=== PATIENT | female | born 1945 | race Caucasian/White ===

== ENCOUNTER 2025-06-30 16:24 | Inpatient (IN) | payer MEDICARE, OTHER ==
[~2025-06-30] VITALS: Ht 157.5 cm; Wt 70.3 kg
[2025-06-30 17:28] LABS: IMMATURE GRANULOCYTE ABSOLUTE 0.08 K/uL (0-1); NUCLEATED RED BLOOD CELLS 0.0 % (0.0-0.19); PLATELET COUNT (AUTO) 369 K/uL (130-400); RED BLOOD CELL COUNT(AUTO) 4.74 MIL/uL (4.00-5.50); RED CELL DISTRIBUTION WIDTH 11.9 % (11.0-15.5); WHITE BLOOD COUNT (AUTO) 12.8 K/uL (4.8-10.8)
[2025-06-30 17:49] LABS: CREATINE KINASE, TOTAL 66.0 U/L (21-232); CREATININE 1.0 mg/dL (0.5-1.0); GLOMERULAR FILTR. RATE CALC 58.0 mL/min (>90); GLUCOSE,RANDOM 104.0 mg/dL (70-105); SODIUM SERUM 141.0 mmol/L (136-145); UREA NITROGEN, BLOOD 14.0 mg/dL (7-18)
[2025-06-30] MEDS: 0.9%NACL 1000ML 1,000 ML IV ONE (18:07)
[2025-06-30] MEDS: MAGNESIUM OXIDE 400 MG TABLET PO ONE (18:07)
[2025-06-30] MEDS ORDERED: AMLO-258 PO (18:20)
[2025-06-30] MEDS ORDERED: SERT-439 PO (18:20)
[2025-06-30] MEDS ORDERED: SIMV-43 PO (18:20)
[2025-06-30] MEDS ORDERED: LEVO112C5 PO (18:20)
[2025-06-30] MEDS ORDERED: LOSA25TA41 PO (18:20)
--- NOTE | 2025-06-30 18:24 | NUR ---
MEDICATIONS UPDATEDM PENDING RECONCILED FROM PROVIDER
--- NOTE | 2025-06-30 18:44 | EKG ---
[facility] Test Date: 2025-06-30 Test Time: 17:23:33 Pat Name: BRIANNA STOLL Department: ED Room: 302 Gender: F Ios Developer: [id number] : 1945 Requested By: ANGIE JOLLY Order Number: [id number] Reading MD: Tatum Trimble Measurements Intervals [place] Rate: 73 P: 70 CA: 163 QRS: -21 QRSD: 95 T: 33 QT: 395 QTc: 436 Interpretive Statements Sinus rhythm No previous ECG available for comparison Electronically Signed On 07-01-2025 08:33:37 CDT by Tatum Trimble Please click the below link to view image of tracing.
[2025-06-30 19:32] LABS: APPEARANCE,URINE CLEAR (CLEAR); GLUCOSE, URINE (UA) NEGATIVE (NEGATIVE); LEUKOCYTE ESTERASE ,URINE 25 Leu/uL (NEGATIVE); NITRATE,URINE NEGATIVE (NEGATIVE); OCCULT BLOOD,URINE NEGATIVE (NEGATIVE)
[2025-06-30 19:34] LABS: ADD UA MICROSCOPIC YES
--- NOTE | 2025-06-30 20:17 | HP ---
History of Present Illness Reason for Visit: dizziness History of Present Illness Ms. Hanson is a 79-year-old female that was seen and examined today on 06/30/2025. Patient is a good historian of personal health Patient reports that she came to the emergency department with a chief complaint of lightheadedness. Onset was today at 3:00 p.m.. Location is head. Duration is on and off. Patient reports one episode. Character is described as, "like everything drained out of my body. "Symptoms are aggravated with a standing up from using the toilet. There was no alleviating factors. Symptoms resolved on their own. Patient denies any associated nausea, vomiting, chest pain. Today in the emergency department WBCs 12.8, potassium 3.0, urinalysis positive for leukocyte esterase and WBCs 6-10. Emergency room physician recommended that patient be admitted with a diagnosis of syncope. Past Medical History ADDITIONAL PAST MEDICAL HISTORY: [Hypertension, hypothyroidism, hyperlipidemia] SOCIAL HISTORY: [Negative for smoking, alcohol use, drug use. Patient lives with the , Suman. Patient denies difficulty paying her bills. Patient is typically independent of all her ADLs.] SURGICAL HISTORY: [Pituitary tumor excision, cholecystectomy, BTL] Review of Systems General: No Fever, No Chills, No Night Sweats, No Fatigue, No Malaise, No Appetite, No Other HEENT: No Head Aches, No Visual Changes, No Eye Pain, No Ear Pain, No Dysphasia, No Sinus Congestion, No Post Nasal Drip, No Sore Throat, No Other Pulmonary: No Dyspnea, No Cough, No Pleuritic Chest Pain, No Other Cardiovascular: Lt Headedness; No: Chest Pain, Palpitations, Orthopnea, Paroxysmal Noc. Dyspnea, Edema, Other Gastrointestinal: No: Nausea, Vomiting, Abdominal Pain, Diarrhea, Constipation, Melena, Hematochezia, Other Genitourinary: No Dysuria, No Frequency, No Incontinence, No Hematuria, No Retention, No Other Musculoskeletal: No: other, neck pain, shoulder pain, arm pain, back pain, hand pain, leg pain, foot pain Skin: No Urticaria, No Rash, No Other Neurological: No: Weakness, Numbness, Incoordination, Change in speech, Confusion, Seizures, Other Allergies: Coded Allergies: codeine (Unverified Adverse Reaction, Unknown, 06/30/25) NAUSEA, VOMITING Scheduled Amlodipine Besylate (Amlodipine Besylate), 1 TAB PO DAILY, (Reported) Levothyroxine Sodium (Levothyroxine), 1 CAP PO DAILY, (Reported) Losartan Potassium (Losartan Potassium), 1 TAB PO DAILY, (Reported) Sertraline HCl (Sertraline HCl), 50 MG PO DAILY, (Reported) Simvastatin (Simvastatin), 1 TAB PO HS, (Reported) Exam Vital Signs Vital Signs Date Time Temp Pulse Resp B/P (MAP) Pulse Ox O2 Delivery O2 Flow Rate FiO2 06/30/25 18:30 98.1 75 16 121/69 98 Room Air* 0 21 General Appearance: Alert, Oriented X3, Cooperative, No acute distress HEENT: Atraumatic, EOMI Respiratory: Clear to auscultation, Normal air movement, NL respiratory effort Cardiovascular: Regular rate, Regular rhythm, Normal S1, Normal S2 Abdominal: Normal bowel sounds, Soft, No tenderness Extremities: No edema Skin: No significant lesion Neuro: Normal gait, Normal speech, Strength at 5/5 X4 ext, Sensation intact, Cranial nerves 3-12 NL Psych/Mental Status: Mental status NL, Mood NL, Thoughts/Content NL Assessment/Plan ASSESSMENT: [ Syncope, POA Urinary tract infection, POA Leukocytosis, POA Hypokalemia, POA Hypomagnesemia Hypothyroidism PLAN: [ Admit patient to medical floor as inpatient status. Place patient on telemetry monitoring. Check orthostatic vital signs once per shift Fall precautions Ultrasound carotid Doppler, follow up with the results 2D echo, follow up with the results Neuro checks every 4 hours with the vital signs (check GCS, level of consciousness, extremity movement, pupil reaction, hand grasp strength, speech clarity) Urinary tract infection: Check urine culture, follow up with the results. Empiric antibiotic therapy with Rocephin Leukocytosis: Check lactic acid, follow up with the results Check procalcitonin, follow up with the results Check blood culture, follow up with the results Hypokalemia, hypomagnesemia: Replace potassium and magnesium per hospital protocol. Hypothyroidism: Consider resuming home medications once they have been reconciled. For now check TSH in a.m., follow up with the results. GI prophylaxis, Protonix DVT prophylaxis, Lovenox ADVANCED CARE PLANNING 1. Which of the following were discussed? Hospice Care - Yes Therapeutic options - yes Advance Directives - Yes - Other discussions - 2. Discussed with who? 3. Voluntary nature of this service was explained to the patient? Yes 4. Amount of time spent - ___16 minutes____ 5. Reviewed by Physician? (if this service was performed by NPP) Yes This document was generated in part using voice recognition software, occasional wrong word or sound alike substitutions may have occurred due to the inherent limitations of voice recognition software. Read the chart carefully and recognize using context, where the substitutions have occurred. Although every effort was made to edit the content, new home sales consultant and typing errors may occur ATTESTATION BY PHYSICIAN I have seen and examined the patient. I reviewed the documentation, medical decision making, and treatment plan as noted by the mid-level provider above. I agree with the findings and plan of care. ] SUMAN RIGGS [facility] Jun 30, 2025 20:17
[2025-06-30] MEDS ORDERED: LACTULOSE 20 GM/30 ML UDCUP PO PRN (20:30)
[2025-06-30] MEDS ORDERED: PoTASSium chl 10% ELIXIR 20MEQ 20 MEQ/15 ML UDCUP PO PRN (20:30)
[2025-06-30] MEDS ORDERED: MAGNESIUM 2GM PREMIX 50ML 50 ML IV PRN (20:30)
--- NOTE | 2025-06-30 20:35 | ERN ---
General Chief Complaint: Syncope Stated Complaint: SYNCOPE Time Seen by MD: 16:25 Time Seen by Midlevel: 16:25 Source: patient History of Present Illness Initial Comments The patient is a 71-year-old female presenting to the emergency department following a syncopal episode. Patient states she was on the toilet having a bowel movement when she had syncope episode. Her was near her and was able to catch your. Patient was assisted up by her . On arrival she reports generalized body weakness but denies any other symptoms. Denies any head injury. Allergies: Coded Allergies: codeine (Unverified Adverse Reaction, Unknown, 06/30/25) NAUSEA, VOMITING Home Meds Reported Medications Simvastatin (Simvastatin) 20 Mg Tablet, 1 TAB PO HS for 30 Days, #30 TAB 0 Refills 06/30/25 Losartan Potassium (Losartan Potassium) 25 Mg Tablet, 1 TAB PO DAILY for 30 Days, #30 TAB 0 Refills 06/30/25 Amlodipine Besylate (Amlodipine Besylate) 10 Mg Tablet, 1 TAB PO DAILY for 30 Days, #30 TAB 0 Refills 06/30/25 Levothyroxine Sodium (Levothyroxine) 112 Mcg Capsule, 1 CAP PO DAILY for 30 Days, #30 CAP 0 Refills 06/30/25 Sertraline HCl (Sertraline HCl) 50 Mg Tablet, 50 MG PO DAILY, TAB 06/30/25 Past Medical History Past Medical History: High Cholesterol, Hypertension, Hypothyroid, Other Medical History Other: PITUATARY TUMOR Past Surgical History: Cholecystectomy, Other Surgical History Other: PITUATARY TUMOR, TUBAL LIGATION ROS Dictation CONSTITUTIONAL: Negative except for HPI HEAD/FACE: Negative except for HPI EENT: Negative except for HPI RESPIRATORY: Negative except for HPI GASTROINTESTINAL/ABDOMINAL: Negative except for HPI GENITOURINARY: Negative except for HPI MUSCULOSKELETAL: Negative except for HPI INTEGUMENTARY: Negative except for HPI NEUROLOGICAL/PSYCH: Negative except for HPI HEMATOLOGIC/LYMPHATIC: Negative except for HPI All Systems Negative, Except as noted above. 13 point review of systems assessed and all negative except for above. Physical Exam Physical Exam Dictation Vital Signs reviewed General Appearance: Alert, oriented x 3, no acute distress, well developed, nourished. Head and Face: non-traumatic. Eyes: PERRL, pink conjunctivas, eyelid no trauma, anterior chamber with arcus senilis. Ears: Pinnas intact and no signs of trauma or erythema ear canals clear and no discharge TM no erythema Nose: No discharge, no bleeding. Oropharynx: Mouth normal, tongue pink, pharynx clear,no erythema, tonsils no exudates, no abscesses noted, mucous membrane moist Neck: Supple, non-tender, no thyromegaly, no masses, no JVD, no bruits Breast:Deferred Chest:No tenderness, no crepitus, no paradoxical movement, no retractions Lungs:Clear, well-ventilated, symmetric, no rales, no wheezing, no rhonchi, no stridor, good breath sounds bilaterally Heart: Regular rate, regular rhythm, no murmur, no gallops Vascular: no peripheral edema, Abdomen: Soft, positive bowel sounds, nondistended, no guarding, nontender, no rebound, no masses no hepatomegaly, no splenomegaly, no Medley's sign, no hernias. Rectal: Deferred Genital: Deferred Neurological: Normal speech, motor function intact, sensory function intact Musculoskeletal: Neck nontender, full range of motion, back nontender, full range of motion, Extremities: nontender, full range of motion Skin: Color pink, dry, no turgor, no rash, no lacerations, no abrasions, no con tusions. Lymphatic: Deferred Results Laboratory and Microbiology Lab and Micro Result Laboratory Tests Test 06/30/25 17:13 06/30/25 19:22 White Blood Count 12.8 K/uL (4.8-10.8) H Red Blood Count 4.74 MIL/uL (4.00-5.50) Hemoglobin 14.4 g/dL (12.0-16.0) Hematocrit 43.7 % (36-48) Mean Corpuscular Volume 92.2 fL (79-99) Mean Corpuscular Hemoglobin 30.4 pg (27.0-33.0) Mean Corpuscular Hemoglobin Concent 33.0 g/dL (32.0-36.0) Red Cell Distribution Width 11.9 % (11.0-15.5) Platelet Count 369 K/uL (130-400) Mean Platelet Volume 10.0 fL (7.5-10.5) Immature Granulocyte % (Auto) 0.6 % (0-1) Neutrophils (%) (Auto) 71.6 % (40.0-77.0) Lymphocytes (%) (Auto) 18.2 % (21.0-51.0) L Monocytes (%) (Auto) 8.8 % (3.0-13.0) Eosinophils (%) (Auto) 0.3 % (0.0-8.0) Basophils (%) (Auto) 0.5 % (0.0-5.0) Neutrophils # (Auto) 9.1 K/uL (1.8-7.7) H Lymphocytes # (Auto) 2.3 K/uL (1.0-4.8) Monocytes # (Auto) 1.1 K/uL (0.1-1.0) H Eosinophils # (Auto) 0.04 K/uL (0.00-0.70) Basophils # (Auto) 0.07 K/uL (0.00-0.20) Absolute Immature Granulocyte (auto 0.08 K/uL (0-1) Nucleated Red Blood Cells 0.0 % (0.0-0.19) Sodium Level 141 mmol/L (136-145) Potassium Level 3.0 mmol/L (3.5-5.1) *L Chloride Level 98 mmol/L (101-111) L Carbon Dioxide Level 39 mmol/L (21-32) H Blood Urea Nitrogen 14 mg/dL (7-18) Creatinine 1.0 mg/dL (0.5-1.0) Glomerular Filtration Rate Calc 58 mL/min (>90) Random Glucose 104 mg/dL (70-105) Total Calcium 9.0 mg/dL (8.5-10.1) Magnesium Level 1.70 mg/dL (1.80-2.40) L Total Creatine Kinase 66 U/L (21-232) Troponin I High Sensitivity 14 ng/L (4-50) Urine Color COLORLESS (YELLOW) Urine Appearance CLEAR (CLEAR) Urine pH 7.5 (5.0-8.0) Urine Specific [employer] 1.004 (1.001-1.031) Urine Protein NEGATIVE mg/dL (NEGATIVE) Urine Glucose (UA) NEGATIVE mg/dL (NEGATIVE) Urine Ketones NEGATIVE mg/dL (NEGATIVE) Urine Occult Blood NEGATIVE (NEGATIVE) Urine Nitrate NEGATIVE (NEGATIVE) Urine Bilirubin NEGATIVE mg/dL (NEGATIVE) Urine Urobilinogen 0.2 mg/dL (0.2-1.0) Urine Leukocyte Esterase 25 Elizabeth/uL (NEGATIVE) H Urine RBC None /HPF (0-1) Urine WBC 6-10 /HPF (0-1) H Urine Bacteria None /HPF (None Seen) Labs Reviewed?: Yes MDM MDM: Differential diagnosis: Dehydration, acute coronary syndrome, electrolyte abnormality Rationale: Tests considered and ordered secondary to shared decision making include: Previous outside records reviewed: Old ER visits. Risk of complication and/or morbidity or mortality of patient management: None Medications-Per medication reconciliation Need for hospitalization: Patient does meet criteria for hospitalization. Need for emergency major/minor surgery: No There are no social concerns with this patient. Prescription drug management Prescriptions will include symptomatic care Patient's prior external medical records from other ER visits were reviewed by me as indicated. Prior testing and results from previous visits were reviewed. Prior tests were taken into account with medical decision making and resource utilization, independent historian/historians were used to obtain complete medical history. I independently interpreted the test that were performed, results were reviewed by me and considered findings on radiology if ordered. Medical management and examination interpretation discussions were had by me with other qualified healthcare professionals as indicated for the patient's care. ED Course Orders Procedure Category Date Status Time 12 Lead Ekg Tracing- EKG 06/30/25 Complete Technical 16:54 Cbc With Differential LAB 06/30/25 Complete 16:54 Basic Metabolic Panel LAB 06/30/25 Complete 16:54 Troponin I High LAB 06/30/25 Complete Sensitivity 16:54 Creatine Kinase, Total LAB 06/30/25 Complete 16:54 Magnesium LAB 06/30/25 Complete 16:54 Magnesium Oxide PHA 06/30/25 Complete (Mag-Ox) 18:00 Potassium Bicarb/Cit PHA 06/30/25 Complete Ac 25meq (K-Lyte Ta 18:00 Urinalysis Profile LAB 06/30/25 Complete 17:57 0.9%Nacl 1000ml (Ns PHA 06/30/25 Complete 1000ml) 18:00 Culture Urine DAYRON 06/30/25 In Process 19:39 Current Medications Medications (Trade) Dose Ordered Sig/Gisella Route PRN Reason Start Time Stop Time Status Last Admin Dose Admin Magnesium Oxide (Mag-Ox) 400 mg ONCE ONCE PO 06/30/25 18:00 06/30/25 18:01 DC 06/30/25 18:07 Potassium Bicarbonate (K-Lyte Tablet Eff 25 Meq Tablet.eff) 50 meq ONCE ONCE PO 06/30/25 18:00 06/30/25 18:01 DC 06/30/25 18:07 Sodium Chloride 1,000 ml @ 0 mls/hr ONCE ONCE IV 06/30/25 18:00 06/30/25 18:01 DC 06/30/25 18:07 Vital Signs Date Time Temp Pulse Resp B/P (MAP) Pulse Ox O2 Delivery O2 Flow Rate FiO2 06/30/25 18:30 98.1 75 16 121/69 98 Room Air* 0 21 06/30/25 16:25 98.1 75 16 111/71 98 Room Air 0 DX & DISP Disposition: Inpatient Departure Impression: Primary Impression: Dehydration Additional Impressions: Syncope, Hypokalemia, Hypomagnesemia Condition: Stable Referrals: SHANNAN CARLIN MD (PCP) I have reviewed the case, and I agree with, Diagnosis and Plan I performed the substantive portion of the visit. I have reviewed and personally made and approve the management plan that is documented in the note by myself or the BERKLEY. I acknowledge for responsibility for the patient's management plan. ANGIE JOLLY Jun 30, 2025 20:35
[2025-07-01] VITALS (10 sets, daily range): BP systolic 99–172; BP diastolic 52–85; PULSE 73–95; RESP 17–20; TEMP 97.3–98.3; O2SAT 95–97
--- NOTE | 2025-07-01 02:00 | NUR ---
PATIENT REPORT GIVEN TO KATHY JALLOH
--- NOTE | 2025-07-01 02:39 | NUR ---
home medications asked the patient for her home medications. she said nobody can bring them from home because her is hospitalized too.
[2025-07-01] MEDS: ASPIRIN 325MG EC TAB PO ONE (02:51)
[2025-07-01] MEDS: MELATONIN 5 MG TABLET PO ONE (02:51)
--- NOTE | 2025-07-01 06:20 | HMCIMG ---
EXAMINATION: DUPLEX ULTRASOUND EXAMINATION OF THE BILATERAL CAROTID AND VERTEBRAL ARTERIES. CLINICAL HISTORY: Dizziness. COMPARISON: None provided. TECHNIQUE: Real-time ultrasound scan of the bilateral carotid and vertebral arteries, 2-D grayscale, with color Doppler flow and spectral waveform analysis. FINDINGS: Color and spectral Doppler interrogation of the carotid vessels on the right demonstrate peak systolic velocities as follows: CCA (Proximal and distal): 66 and 60 cm/s respectively. Bulb: 58 cm/s ECA: 61 cm/s ICA (Proximal, mid, and distal): 63, 53, and 63 cm/s respectively. Vertebral artery demonstrates antegrade flow: 34 cm/s. Right ICA/CCA ratio: 1.0 Peak systolic velocities on the left are as follows: CCA (Proximal and distal): 73 and 76 cm/s respectively. Bulb: 57 cm/s ECA: 95 cm/s ICA (Proximal, mid, and distal): 63, 74, and 94 cm/s respectively. Vertebral artery demonstrates antegrade flow: 50 cm/s. Left ICA/CCA ratio: 1.2 Both the common carotid arteries and their branches reveal mild intimal thickening. There are small calcified plaques in the bilateral carotid bulb without significant stenosis. High resistance flow in the right vertebral artery. IMPRESSION: Mild intimal thickening in bilateral carotid arteries and their branches. Small calcified plaques in the bilateral carotid bulb without significant stenosis There is no significant stenosis or flow limiting lesions in the remainder of the arteries. High resistance flow in the right vertebral artery, suggestive of distal stenosis. Recommend CT/MR angiogram. /[place]
[2025-07-01 06:55] LABS: IMMATURE GRANULOCYTE ABSOLUTE 0.06 K/uL (0-1); NUCLEATED RED BLOOD CELLS 0.0 % (0.0-0.19); PLATELET COUNT (AUTO) 309 K/uL (130-400); RED BLOOD CELL COUNT(AUTO) 4.61 MIL/uL (4.00-5.50); RED CELL DISTRIBUTION WIDTH 12.1 % (11.0-15.5); WHITE BLOOD COUNT (AUTO) 11.8 K/uL (4.8-10.8)
[2025-07-01 07:17] LABS: CREATININE 0.8 mg/dL (0.5-1.0); GLOMERULAR FILTR. RATE CALC 75.0 mL/min (>90); GLUCOSE,RANDOM 123.0 mg/dL (70-105); PHOSPHORUS 2.9 mg/dL (2.5-4.9); SODIUM SERUM 141.0 mmol/L (136-145); UREA NITROGEN, BLOOD 12.0 mg/dL (7-18)
--- NOTE | 2025-07-01 10:07 | NUR ---
DCP:HOME Pt currently lives with Shree Hanson [phone]. Pt does not have any DME, home health, or provider services. Pt states that she is able to complete ADLs independently. PCP is Dr. Alvarez Keane with the [facility] and [facility]. At [place] pt will want to go home and family can assist with transportation. Addendum: 07/01/25 at 1008 by KATHY HERNANDEZ SS Amended: Links added.
[2025-07-01] MEDS: PoTASSium chloRIDE 20MEQ ER 20 MEQ ERTAB PO PRN (10:30)
[2025-07-01] MEDS: FAMOTIDINE 20MG TAB PO SCH (10:30)
[2025-07-01] MEDS: ENOXAPARIN SODIUM 40 MG/0.4 ML SYRINGE SQ SCH (10:36)
--- NOTE | 2025-07-01 12:21 | PN ---
[facility] PROGRESS NOTE Date of Service: Jul 01, 2025 Time of Service: 12:14 SUBJECTIVE: [ ] Patient reports that she came to the emergency department with a chief complaint of lightheadedness. Onset was today at 3:00 p.m.. Location is head. Duration is on and off. Patient reports one episode. Character is described as, "like everything drained out of my body. "Symptoms are aggravated with a standing up from using the toilet. There was no alleviating factors. Symptoms resolved on their own. Patient denies any associated nausea, vomiting, chest pain. 07/01/2025 patient was seen earlier, reviewed imaging carotid Dopplers were n egative orthostatic vitals were normal. 2D echo pending. Patient reports not having similar symptoms in the past. PT to eval and treat continues IV antibiotics urine cultures in process REVIEW OF SYSTEMS CONSTITUTIONAL: Denies fevers, chills, or night sweats. No unintentional weight loss reported. NEUROLOGICAL: Denies headache, amaurosis fugax, motor weakness, sensory deficit, vertigo/spinning sensation, gait abnormalities, or tremors. ENT: No hearing loss, otalgia, otorrhea, rhinitis, rhinorrhea, hoarseness, or sore throat. CARDIOVASCULAR: Denies any exertional angina, dyspnea on exertion, orthopnea, paroxysmal nocturnal dyspnea, palpitations, life-threatening arrhythmias, claudication. PULMONARY: Denies any shortness of breath, cough, phlegm/sputum, hemoptysis, pleuritic chest pain. SLEEP: Denies morning headaches, daytime somnolence or napping. Denies difficulty falling asleep, staying asleep, waking from sleep. Denies knowledge of snoring. GASTROINTESTINAL: Denies any type of dysphagia to either liquids or solids. Denies nausea, vomiting, pyrosis, early satiety, abdominal pain, diarrhea, constipation, or changes in stool consistency or caliber. Denies coffee-ground emesis, hematemesis, hematochezia, or melanotic stools. GENITOURINARY: Denies frequency, urgency, nocturia, hematuria or incontinence (Storage/Irritative symptoms.) Low urinary stream, straining to void, urinary intermittency or hesitancy, splitting of the voiding stream, terminal dribbling. ENDOCRINOLOGIC: Denies polyuria, polydipsia, polyphagia or heat/cold intolerances. HEMATOLOGIC: Denies thrombophilia/previous clots, or coagulopathy/bleeding disorders. ONCOLOGIC: Denies personal history of malignancy. DERMATOLOGIC: Denies rashes or pruritus. PSYCHIATRIC: Denies any suicidal or homicidal ideation. Denies hallucinations. PHYSICAL EXAM GENERAL APPEARANCE: The patient is awake, alert, and oriented, in no acute cardiopulmonary distress. NEUROLOGICAL: Cranial nerves II-XII grossly intact. Motor is 5/5 in bilateral upper and lower extremities proximal to distal. No sensory deficits. HEENT: Face is symmetric. Pupils are equal and reactive. Extraocular movements are intact. NECK: Supple. No JVD. No thyromegaly. No submental, submandibular, pre- /postauricular, occipital or supraclavicular lymphadenopathy. CHEST: Normal chest expansion. No Telemetry. LUNGS: Absence of any rales, rhonchi or any wheezing. CARDIOVASCULAR: Regular. S1 and S2 normal. No appreciable rubs, murmurs or gallops. ABDOMEN: Soft, nontender, and nondistended. There is no rebound, voluntary guarding, or rigidity. : Deferred. No Gama. EXTREMITIES: Non-edematous and not cyanotic. No clubbing. Good capillary refill. SKIN: No skin breakdown. Vital Signs (last 8hr) Date Time Temp Pulse Resp B/P (MAP) Pulse Ox O2 Delivery O2 Flow Rate FiO2 07/01/25 08:00 97.5 73 17 172/85 97 Room Air 07/01/25 05:06 97.3 75 20 126/52 96 Room Air LABS: Laboratory: Test 07/01/25 11:54 07/01/25 06:45 07/01/25 00:11 06/30/25 20:40 Range/Units Whole Blood Glucose 102 70-110 MG/DL White Blood Count 11.8 H 4.8-10.8 K/uL Red Blood Count 4.61 4.00-5.50 MIL/uL Hemoglobin 13.9 12.0-16.0 g/dL Hematocrit 41.8 36-48 % Mean Corpuscular Volume 90.7 79-99 fL Mean Corpuscular Hemoglobin 30.2 27.0-33.0 pg Mean Corpuscular Hemoglobin Concent 33.3 32.0-36.0 g/dL Red Cell Distribution Width 12.1 11.0-15.5 % Platelet Count 309 130-400 K/uL Mean Platelet Volume 9.9 7.5-10.5 fL Immature Granulocyte % (Auto) 0.5 0-1 % Neutrophils (%) (Auto) 75.9 40.0-77.0 % Lymphocytes (%) (Auto) 13.4 L 21.0-51.0 % Monocytes (%) (Auto) 9.5 3.0-13.0 % Eosinophils (%) (Auto) 0.3 0.0-8.0 % Basophils (%) (Auto) 0.4 0.0-5.0 % Neutrophils # (Auto) 8.9 H 1.8-7.7 K/uL Lymphocytes # (Auto) 1.6 1.0-4.8 K/uL Monocytes # (Auto) 1.1 H 0.1-1.0 K/uL Eosinophils # (Auto) 0.04 0.00-0.70 K/uL Basophils # (Auto) 0.05 0.00-0.20 K/uL Absolute Immature Granulocyte (auto 0.06 0-1 K/uL Nucleated Red Blood Cells 0.0 0.0-0.19 % Sodium Level 141 136-145 mmol/L Potassium Level 3.4 L 3.5-5.1 mmol/L Chloride Level 101 101-111 mmol/L Carbon Dioxide Level 35 H 21-32 mmol/L Blood Urea Nitrogen 12 7-18 mg/dL Creatinine 0.8 0.5-1.0 mg/dL Glomerular Filtration Rate Calc 75 >90 mL/min Random Glucose 123 H 70-105 mg/dL Total Calcium 8.5 8.5-10.1 mg/dL Phosphorus Level 2.9 2.5-4.9 mg/dL Magnesium Level 1.90 1.80-2.40 mg/dL Thyroid Stimulating Hormone (TSH) 1.72 0.36-3.74 uIU/mL Lactic Acid Level 1.6 0.8-2.5 mmol/L Procalcitonin < 0.05 L 0.05-0.5 ng/mL Test 06/30/25 19:22 06/30/25 17:13 Range/Units Urine Color COLORLESS YELLOW Urine Appearance CLEAR CLEAR Urine pH 7.5 5.0-8.0 Urine Specific [place] 1.004 1.001-1.031 Urine Protein NEGATIVE NEGATIVE mg/dL Urine Glucose (UA) NEGATIVE NEGATIVE mg/dL Urine Ketones NEGATIVE NEGATIVE mg/dL Urine Occult Blood NEGATIVE NEGATIVE Urine Nitrate NEGATIVE NEGATIVE Urine Bilirubin NEGATIVE NEGATIVE mg/dL Urine Urobilinogen 0.2 0.2-1.0 mg/dL Urine Leukocyte Esterase 25 H NEGATIVE Elizabeth/uL Urine RBC None 0-1 /HPF Urine WBC 6-10 H 0-1 /HPF Urine Bacteria None None Seen /HPF Total Creatine Kinase 66 21-232 U/L Troponin I High Sensitivity 14 4-50 ng/L Current Medications Medications (Trade) Dose Ordered Sig/Gisella Route PRN Reason Start Time Stop Time Status Last Admin Dose Admin Acetaminophen (TYLenol 325MG TAB) 650 mg Q6H PRN PO TEMPERATURE GREATER THAN 101.5 06/30/25 20:30 07/30/25 20:29 Ceftriaxone Sodium (ROCEphine 1G INJ) 1 gm Q24H IVPB 06/30/25 20:30 07/10/25 20:29 06/30/25 21:28 1 GM Enoxaparin Sodium (Lovenox) 40 mg DAILY SQ 07/01/25 09:00 07/31/25 08:59 07/01/25 10:36 40 MG Famotidine (Pepcid 20mg Tab) 20 mg Q48H PO 07/01/25 09:00 07/31/25 08:59 07/01/25 10:30 20 MG Hydralazine HCl (APRESOLine 20MG INJ) 10 mg Q6H PRN IV For:SBP above 160;DBP above 90 06/30/25 20:30 07/30/25 20:29 07/01/25 12:03 10 MG Lactulose (Constulose 20gm/ 30ml Udcup) 20 gm BID PRN PO CONSTIPATION 06/30/25 20:30 07/30/25 20:29 Losartan Potassium (CozAAR 25MG TAB) 25 mg DAILY PO 07/02/25 09:00 08/01/25 08:59 UNV Magnesium Sulfate 50 ml @ 0 mls/hr PROTOCOL PRN IV h 06/30/25 20:30 07/30/25 20:29 Miscellaneous Medication (Amlodipine Besylate ) 1 tab DAILY PO 07/02/25 09:00 08/01/25 08:59 UNV Miscellaneous Medication (Levothyroxine Sodium (Levothyroxine)) 1 cap DAILY PO 07/02/25 09:00 08/01/25 08:59 UNV Ondansetron HCl (zoFRAN 4MG INJ) 4 mg Q6H PRN IV NAUSEA/VOMITING 06/30/25 20:30 07/30/25 20:29 Potassium Chloride 100 ml @ 100 mls/hr AD PRN IV POTASSIUM PROTOCOL 06/30/25 20:30 07/30/25 20:29 Potassium Chloride (K-Dur/Klor-Con 20meq) 20 meq AD PRN PO POTASSIUM PROTOCOL 06/30/25 20:30 07/30/25 20:29 07/01/25 10:30 20 MEQ Potassium Chloride (KCl 10% Elixir 20meq/15ml) 20 meq AD PRN PO POTASSIUM PROTOCOL 06/30/25 20:30 07/30/25 20:29 Sertraline HCl (ZOloft 50 mg tab) 50 mg DAILY PO 07/02/25 09:00 08/01/25 08:59 UNV Simvastatin (zoCOR) 20 mg HS PO 07/01/25 21:00 07/31/25 20:59 UNV DIAGNOSTICS / RADIOLOGY: [ ] ASSESSMENT: autonomic imbalance syncope, POA Urinary tract infection, POA Leukocytosis, POA Hypokalemia, POA Hypomagnesemia Hypothyroidism PLAN: [ ] Admit medical floor with Tele monitoring orthostatic vital signs once per shift Fall precautions Imaging Ultrasound carotid Doppler, noted 2D echo, to evaluate LV function pending results Neuro checks every 4 hours with the vital signs (check GCS, level of consciousness, extremity movement, pupil reaction, hand grasp strength, speech clarity) PT to eval Urinary tract infection: Microbiology urine cultures in process Antibiotics Rocephin1 g every 24 hours Labs in a.m. CBC CMP magnesium We will continue to monitor electrolytes ongoing surveillance and replace per protocol Home medication reviewed and reconciled GI prophylaxis, Protonix DVT prophylaxis, Lovenox All questions and concerns addressed Further orders as per response to treatment ATTESTATION BY PHYSICIAN I have seen and examined the patient. I reviewed the documentation, medical de cision making, and treatment plan as noted by the mid-level provider above. I agree with the findings and plan of care. KATY VEGA MD, ELIZABETH NP Jul 01, 2025 12:21
[2025-07-01] MEDS: amLODIPine 5 MG TAB PO ONE (13:40)
--- NOTE | 2025-07-01 15:23 | HMCSR ---
APPROVED REPORT EXAM: Two-dimensional and M-mode echocardiogram with Doppler and color Doppler. INDICATION ICD: Dizziness 2D Dimensions RVDd3.3 cmLVEF(%)69.8 (>50%)LVED Vol(simp.)55.0 mL IVSd0.8 (0.7-1.1cm)FS(%)39 %LVES Vol(simp.)18.0 mL LVDd4.0 (3.8-5.6cm)LA (2D)3.5 (1.6-4.0cm)LVEF(%, simp.)67 % PWd0.8 (0.7-1.1cm)Ao Root(2D)3.0 (2.0-3.7cm)LA ESV INDEX (BP)21.04 mL/m2 IVSs0.9 cmLVOT diam1.8 (1.8-2.4cm) LVDs2.5 (2.5-4.0cm)IVC diam1.9 cm PWs0.9 cm Deformation Strain Apical 4-20.2 % Apical 2-21.0 % Apical 3-19.9 % Global Strain-20.4 % M-Mode Dimensions EPSS0.5 cm LA (MM)3.8 (1.6-4.0cm) Ao Root(MM)2.4 (2.0-3.7cm) Aortic Valve AoV Vmax1.5 m/Lara Peak GR9.2 mmHgLVOT Vmax1.6 m/s AoV VTI0.4 mAo Mean GR6.4 mmHgLVOT VTI0.37 m JH (VMAX)2.76 cm2AVA (VTI) 2.6 cm2 Mitral Valve MV E Vmax69.3 cm/sDECEL Uhti349 ms MV A Vmax90.7 cm/sP 1/2 T45 ms E/A ratio0.8MVA (PHT)4.9 cm2 TDI E/E' Imspfd47.3E/E' Kibmjbe60.5 Medial E' Peak V6.76 cm/sLateral E' Peak V6.02 cm/s Pulmonary Valve PV Vmax0.8 m/sPV VTI0.18 mPV Mean GR1.9 mmHg PV Peak GR2.9 mmHg Tricuspid Valve TR Vmax2.5 m/sRAP (EST) 3 hmAgDRKP20.6 mmHg TR Peak GR26.6 mmHg Left Ventricle The left ventricle is normal size. GLS -20.0% There is normal LV segmental wall motion. There is norm al left ventricular wall thickness. The LVEF is > 55%. Stage I diastolic dysfunction. Right Ventricle The right ventricle is normal size. The right ventricular systolic function is normal. Atria The left atrium size is normal. The right atrium size is normal. Aortic Valve The aortic valve is normal in structure. No aortic regurgitation is present. There is no aortic valvu lar stenosis. Mitral Valve The mitral valve is normal in structure. There is trace mitral valve regurgitation noted. There is no mitral valve stenosis. Tricuspid Valve The tricuspid valve is normal in structure. There is trace of tricuspid valve regurgitation noted. Pulmonic Valve The pulmonary valve is normal in structure. There is no pulmonic valvular regurgitation. Great Vessels The aortic root is normal in size. The IVC is normal in size and collapses >50% with inspiration. Pericardium There is no pericardial effusion. Other Information Quality : Adequate Conclusion The LVEF is > 55%. GLS -20.0% There is normal LV segmental wall motion. There is no pericardial effusion.
[2025-07-01 18:26] LABS: COVID19 (SARS ANTIGEN RAPID) PRESUMPTIVE NEGATIVE (NEGATIVE); INFLUENZA TYPE A Negative For Type A (NEGATIVE); INFLUENZA TYPE B Negative For Type B (NEGATIVE)
[2025-07-02] VITALS (18 sets, daily range): BP systolic 104–162; BP diastolic 67–87; PULSE 80–108; RESP 18–20; TEMP 97.3–98.7; O2SAT 92–98
[2025-07-02 05:21] LABS: IMMATURE GRANULOCYTE ABSOLUTE 0.05 K/uL (0-1); NUCLEATED RED BLOOD CELLS 0.0 % (0.0-0.19); PLATELET COUNT (AUTO) 322 K/uL (130-400); RED BLOOD CELL COUNT(AUTO) 4.25 MIL/uL (4.00-5.50); RED CELL DISTRIBUTION WIDTH 12.8 % (11.0-15.5); WHITE BLOOD COUNT (AUTO) 9.2 K/uL (4.8-10.8)
[2025-07-02 05:38] LABS: ASPARTATE AMINOTRANSFERASE 12.0 U/L (10-37); CREATININE 1.0 mg/dL (0.5-1.0); GLOMERULAR FILTR. RATE CALC 58.0 mL/min (>90); GLUCOSE,RANDOM 102.0 mg/dL (70-105); SODIUM SERUM 138.0 mmol/L (136-145); TOTAL PROTEIN, SERUM 5.7 g/dL (6.0-8.3); UREA NITROGEN, BLOOD 11.0 mg/dL (7-18)
[2025-07-02] MEDS: amLODIPine 5 MG TAB PO SCH (08:24)
--- NOTE | 2025-07-02 08:57 | PN ---
[facility] PROGRESS NOTE Date of Service: Jul 02, 2025 Time of Service: 08:52 SUBJECTIVE: [ ] Patient reports that she came to the emergency department with a chief complaint of lightheadedness. Onset was today at 3:00 p.m.. Location is head. Duration is on and off. Patient reports one episode. Character is described as, "like everything drained out of my body. "Symptoms are aggravated with a standing up from using the toilet. There was no alleviating factors. Symptoms resolved on their own. Patient denies any associated nausea, vomiting, chest pain. 07/01/2025 patient was seen earlier, reviewed imaging carotid Dopplers were n egative orthostatic vitals were normal. 2D echo pending. Patient reports not having similar symptoms in the past. PT to eval and treat continues IV antibiotics urine cultures in process 07/02/25 PATIENT IS FULLY AWAKE ALERT ORIENTED X3. 2D ECHO WAS NORMAL. PATIENT REPORTS NO DIZZINESS AT THIS TIME. WILL ORDERED A CT ANGIOGRAM HEAD AND NECK TO RULE OUT STENOSIS RECOMMENDATION FROM RADIOLOGIST PATIENT WAS MADE AWARE SHE VERBALIZED UNDERSTANDING REVIEW OF SYSTEMS CONSTITUTIONAL: Denies fevers, chills, or night sweats. No unintentional weight loss reported. NEUROLOGICAL: Denies headache, amaurosis fugax, motor weakness, sensory deficit, vertigo/spinning sensation, gait abnormalities, or tremors. ENT: No hearing loss, otalgia, otorrhea, rhinitis, rhinorrhea, hoarseness, or sore throat. CARDIOVASCULAR: Denies any exertional angina, dyspnea on exertion, orthopnea, paroxysmal nocturnal dyspnea, palpitations, life-threatening arrhythmias, claudication. PULMONARY: Denies any shortness of breath, cough, phlegm/sputum, hemoptysis, pleuritic chest pain. SLEEP: Denies morning headaches, daytime somnolence or napping. Denies difficulty falling asleep, staying asleep, waking from sleep. Denies knowledge of snoring. GASTROINTESTINAL: Denies any type of dysphagia to either liquids or solids. Denies nausea, vomiting, pyrosis, early satiety, abdominal pain, diarrhea, constipation, or changes in stool consistency or caliber. Denies coffee-ground emesis, hematemesis, hematochezia, or melanotic stools. GENITOURINARY: Denies frequency, urgency, nocturia, hematuria or incontinence (Storage/Irritative symptoms.) Low urinary stream, straining to void, urinary intermittency or hesitancy, splitting of the voiding stream, terminal dribbling. ENDOCRINOLOGIC: Denies polyuria, polydipsia, polyphagia or heat/cold intolerances. HEMATOLOGIC: Denies thrombophilia/previous clots, or coagulopathy/bleeding disorders. ONCOLOGIC: Denies personal history of malignancy. DERMATOLOGIC: Denies rashes or pruritus. PSYCHIATRIC: Denies any suicidal or homicidal ideation. Denies hallucinations. PHYSICAL EXAM GENERAL APPEARANCE: The patient is awake, alert, and oriented, in no acute cardiopulmonary distress. NEUROLOGICAL: Cranial nerves II-XII grossly intact. Motor is 5/5 in bilateral upper and lower extremities proximal to distal. No sensory deficits. HEENT: Face is symmetric. Pupils are equal and reactive. Extraocular movements are intact. NECK: Supple. No JVD. No thyromegaly. No submental, submandibular, pre-/postauricular, occipital or supraclavicular lymphadenopathy. CHEST: Normal chest expansion. No Telemetry. LUNGS: Absence of any rales, rhonchi or any wheezing. CARDIOVASCULAR: Regular. S1 and S2 normal. No appreciable rubs, murmurs or gallops. ABDOMEN: Soft, nontender, and nondistended. There is no rebound, voluntary guarding, or rigidity. : Deferred. No Gama. EXTREMITIES: Non-edematous and not cyanotic. No clubbing. Good capillary refill. SKIN: No skin breakdown. Vital Signs (last 8hr) Date Time Temp Pulse Resp B/P (MAP) Pulse Ox O2 Delivery O2 Flow Rate FiO2 07/02/25 08:00 97.3 89 18 162/87 98 Room Air 07/02/25 06:50 18 N/A Room Air 21 07/02/25 06:50 89 18 07/02/25 04:12 98.2 87 20 160/83 97 Room Air LABS: Laboratory: Test 07/02/25 04:38 07/01/25 18:05 07/01/25 11:54 07/01/25 06:45 Range/Units White Blood Count 9.2 4.8-10.8 K/uL Red Blood Count 4.25 4.00-5.50 MIL/uL Hemoglobin 13.3 12.0-16.0 g/dL Hematocrit 38.2 36-48 % Mean Corpuscular Volume 89.9 79-99 fL Mean Corpuscular Hemoglobin 31.3 27.0-33.0 pg Mean Corpuscular Hemoglobin Concent 34.8 32.0-36.0 g/dL Red Cell Distribution Width 12.8 11.0-15.5 % Platelet Count 322 130-400 K/uL Mean Platelet Volume 10.4 7.5-10.5 fL Immature Granulocyte % (Auto) 0.5 0-1 % Neutrophils (%) (Auto) 61.1 40.0-77.0 % Lymphocytes (%) (Auto) 27.8 21.0-51.0 % Monocytes (%) (Auto) 9.4 3.0-13.0 % Eosinophils (%) (Auto) 0.8 0.0-8.0 % Basophils (%) (Auto) 0.4 0.0-5.0 % Neutrophils # (Auto) 5.6 1.8-7.7 K/uL Lymphocytes # (Auto) 2.6 1.0-4.8 K/uL Monocytes # (Auto) 0.9 0.1-1.0 K/uL Eosinophils # (Auto) 0.07 0.00-0.70 K/uL Basophils # (Auto) 0.04 0.00-0.20 K/uL Absolute Immature Granulocyte (auto 0.05 0-1 K/uL Nucleated Red Blood Cells 0.0 0.0-0.19 % Sodium Level 138 136-145 mmol/L Potassium Level 3.6 3.5-5.1 mmol/L Chloride Level 101 101-111 mmol/L Carbon Dioxide Level 32 21-32 mmol/L Blood Urea Nitrogen 11 7-18 mg/dL Creatinine 1.0 0.5-1.0 mg/dL Glomerular Filtration Rate Calc 58 >90 mL/min Random Glucose 102 70-105 mg/dL Total Calcium 8.6 8.5-10.1 mg/dL Magnesium Level 1.90 1.80-2.40 mg/dL Total Bilirubin 1.0 0.2-1.0 mg/dL Aspartate Amino Transf (AST/SGOT) 12 10-37 U/L Alanine Aminotransferase (ALT/SGPT) 12 12-78 U/L Alkaline Phosphatase 52 50-136 U/L Total Protein 5.7 L 6.0-8.3 g/dL Albumin 2.8 L 3.5-5.0 g/dL Influenza Type A Antigen Negative For Type A NEGATIVE Influenza Type B Antigen Negative For Type B NEGATIVE SARS-CoV-2 Antigen (Rapid) PRESUMPTIVE NEGATIVE NEGATIVE Whole Blood Glucose 102 70-110 MG/DL Phosphorus Level 2.9 2.5-4.9 mg/dL Thyroid Stimulating Hormone (TSH) 1.72 0.36-3.74 uIU/mL Test 07/01/25 00:11 06/30/25 20:40 06/30/25 19:22 06/30/25 17:13 Range/Units Lactic Acid Level 1.6 0.8-2.5 mmol/L Procalcitonin < 0.05 L 0.05-0.5 ng/mL Urine Color COLORLESS YELLOW Urine Appearance CLEAR CLEAR Urine pH 7.5 5.0-8.0 Urine Specific [place] 1.004 1.001-1.031 Urine Protein NEGATIVE NEGATIVE mg/dL Urine Glucose (UA) NEGATIVE NEGATIVE mg/dL Urine Ketones NEGATIVE NEGATIVE mg/dL Urine Occult Blood NEGATIVE NEGATIVE Urine Nitrate NEGATIVE NEGATIVE Urine Bilirubin NEGATIVE NEGATIVE mg/dL Urine Urobilinogen 0.2 0.2-1.0 mg/dL Urine Leukocyte Esterase 25 H NEGATIVE Elizabeth/uL Urine RBC None 0-1 /HPF Urine WBC 6-10 H 0-1 /HPF Urine Bacteria None None Seen /HPF Total Creatine Kinase 66 21-232 U/L Troponin I High Sensitivity 14 4-50 ng/L Current Medications Medications (Trade) Dose Ordered Sig/Gisella Route PRN Reason Start Time Stop Time Status Last Admin Dose Admin Acetaminophen (TYLenol 325MG TAB) 650 mg Q6H PRN PO TEMPERATURE GREATER THAN 101.5 06/30/25 20:30 07/30/25 20:29 Albuterol (DUOneb) 1 UDVIAL [id number] IH 07/02/25 00:00 08/01/25 00:00 07/02/25 06:56 1 UDVIAL Amlodipine Besylate (NorvASC 5MG TAB) 10 mg DAILY PO 07/02/25 09:00 08/01/25 08:59 07/02/25 08:24 10 MG Ceftriaxone Sodium (ROCEphine 1G INJ) 1 gm Q24H IVPB 06/30/25 20:30 07/10/25 20:29 07/01/25 22:12 1 GM Enoxaparin Sodium (Lovenox) 40 mg DAILY SQ 07/01/25 09:00 07/31/25 08:59 07/02/25 08:27 40 MG Famotidine (Pepcid 20mg Tab) 20 mg Q48H PO 07/01/25 09:00 07/31/25 08:59 07/01/25 10:30 20 MG Hydralazine HCl (APRESOLine 20MG INJ) 10 mg Q6H PRN IV For:SBP above 160;DBP above 90 06/30/25 20:30 07/30/25 20:29 07/01/25 12:03 10 MG Lactulose (Constulose 20gm/ 30ml Udcup) 20 gm BID PRN PO CONSTIPATION 06/30/25 20:30 07/30/25 20:29 Levothyroxine Sodium (SYNTHroid 112MCG TAB) 112 mcg SYN PO 07/02/25 06:30 08/01/25 06:29 07/02/25 07:10 112 MCG Losartan Potassium (CozAAR 25MG TAB) 25 mg DAILY PO 07/02/25 09:00 08/01/25 08:59 07/02/25 08:26 25 MG Magnesium Sulfate 50 ml @ 0 mls/hr PROTOCOL PRN IV h 06/30/25 20:30 07/30/25 20:29 Ondansetron HCl (zoFRAN 4MG INJ) 4 mg Q6H PRN IV NAUSEA/VOMITING 06/30/25 20:30 07/30/25 20:29 Potassium Chloride 100 ml @ 100 mls/hr AD PRN IV POTASSIUM PROTOCOL 06/30/25 20:30 07/30/25 20:29 Potassium Chloride (K-Dur/Klor-Con 20meq) 20 meq AD PRN PO POTASSIUM PROTOCOL 06/30/25 20:30 07/30/25 20:29 07/02/25 08:25 20 MEQ Potassium Chloride (KCl 10% Elixir 20meq/15ml) 20 meq AD PRN PO POTASSIUM PROTOCOL 06/30/25 20:30 07/30/25 20:29 Sertraline HCl (ZOloft 50 mg tab) 50 mg DAILY PO 07/02/25 09:00 08/01/25 08:59 Simvastatin (zoCOR) 20 mg HS PO 07/01/25 21:00 07/31/25 20:59 07/01/25 22:12 20 MG DIAGNOSTICS / RADIOLOGY: [ ] ASSESSMENT: autonomic imbalance syncope, POA Urinary tract infection, POA Leukocytosis, POA Hypokalemia, POA Hypomagnesemia Hypothyroidism PLAN: [ ] Admit medical floor with Tele monitoring orthostatic vital signs once per shift Fall precautions Imaging CT ANGIOGRAM HEAD AND NECK 2D echo, to evaluate LV function pending results PT CONTINUES Urinary tract infection: Microbiology urine cultures SO FAR NO GROWTH Antibiotics Rocephin1 g every 24 hours Labs in a.m. CBC CMP magnesium We will continue to monitor electrolytes ongoing surveillance and replace per protocol Home medication reviewed and reconciled GI prophylaxis, Protonix DVT prophylaxis, Lovenox All questions and concerns addressed Further orders as per response to treatment ATTESTATION BY PHYSICIAN I have seen and examined the patient. I reviewed the documentation, medical decision making, and treatment plan as noted by the mid-level provider above. I agree with the findings and plan of care. KATY VEGA MD, ELIZABETH NP Jul 02, 2025 08:56
--- NOTE | 2025-07-02 09:24 | NUR ---
[facility] Care Coordination Call/Service Connection Spoke to the [place] Care Coordination Team regarding discharge planning. Patient is NOT service connected for SNF.
--- NOTE | 2025-07-02 17:14 | HMCIMG ---
EXAM: CTA Neck with and without Intravenous Contrast. CLINICAL HISTORY: STENOSIS RULE OUT TECHNIQUE: Axial CTA images of the neck performed with and without intravenous contrast in the arterial phase. Coronal and sagittal reformatted images were generated and reviewed. 3-D reformatted images generated on an independent workstation were also reviewed. NASCET criteria were used in assessment of stenosis. CONTRAST: Contrast injected without incident. COMPARISON: None provided. FINDINGS: VASCULATURE: Internal carotid arteries: No stenosis by NASCET criteria. No dissection or occlusion. Common carotid arteries: No significant stenosis. No dissection or occlusion. External carotid arteries: Patent. Vertebral arteries: No significant stenosis. No dissection or occlusion. Soft tissues: No acute finding. Bones: No acute osseous abnormality. IMPRESSION: Unremarkable CTA of the neck. /[place]
[2025-07-03] VITALS: BP 137/64; PULSE 98; RESP 20; TEMP 98.4
[2025-07-03 04:00] VITALS: BP 136/65; PULSE 99; RESP 20; TEMP 98.2
[2025-07-03 06:21] VITALS: PULSE 97; RESP 18; O2SAT 99
--- NOTE | 2025-07-03 06:37 | NUR ---
pt is shivering after neb treatment, pt states this has happened before after a neb tx was administered but she never reported the side effect till now. Addendum: 07/03/25 at 0639 by TRESA HERNANDEZ, RT RT Amended: Links added.
[2025-07-03] MEDS ORDERED: LOSA-418 PO (07:57)
[2025-07-03 07:58] VITALS: O2SAT 96
--- NOTE | 2025-07-03 07:59 | DS ---
Discharge Summary Hospital Course Summary: Patient reports that she came to the emergency department with a chief complaint of lightheadedness. Onset was today at 3:00 p.m.. Location is head. Duration is on and off. Patient reports one episode. Character is described as, "like everything drained out of my body. "Symptoms are aggravated with a standing up from using the toilet. There was no alleviating factors. Symptoms resolved on their own. Patient denies any associated nausea, vomiting, chest pain. 07/01/2025 patient was seen earlier, reviewed imaging carotid Dopplers were negative orthostatic vitals were normal. 2D echo pending. Patient reports not having similar symptoms in the past. PT to eval and treat continues IV antibiotics urine cultures in process 07/02/25 PATIENT IS FULLY AWAKE ALERT ORIENTED X3. 2D ECHO WAS NORMAL. PATIENT REPORTS NO DIZZINESS AT THIS TIME. WILL ORDERED A CT ANGIOGRAM HEAD AND NECK TO RULE OUT STENOSIS RECOMMENDATION FROM RADIOLOGIST PATIENT WAS MADE AWARE SHE VERBALIZED UNDERSTANDING 07/03/2025 patient is clinically stable for discharge vital signs are stable blood pressure is well controlled on this admission losartan home med was increased to 50 mg p.o. daily upon discharge. All imaging were negative. No episodes of feeling faint palpitation dizziness since admission. All questions and concerns were addressed. Cultures were negative. Patient received four doses of IV Rocephin 1 g. She denies any dysuria. Search Engineer(s): PHYSICAL EXAM GENERAL APPEARANCE: The patient is awake, alert, and oriented, in no acute cardiopulmonary distress. NEUROLOGICAL: Cranial nerves II-XII grossly intact. Motor is 5/5 in bilateral upper and lower extremities proximal to distal. No sensory deficits. HEENT: Face is symmetric. Pupils are equal and reactive. Extraocular movements are intact. NECK: Supple. No JVD. No thyromegaly. No submental, submandibular, pre- /postauricular, occipital or supraclavicular lymphadenopathy. CHEST: Normal chest expansion. No Telemetry. LUNGS: Absence of any rales, rhonchi or any wheezing. CARDIOVASCULAR: Regular. S1 and S2 normal. No appreciable rubs, murmurs or gallops. ABDOMEN: Soft, nontender, and nondistended. There is no rebound, voluntary guarding, or rigidity. : Deferred. No Gama. EXTREMITIES: Non-edematous and not cyanotic. No clubbing. Good capillary refill. SKIN: No skin breakdown. Procedure(s): REASON: dizziness ORDERING PHYSICIAN: PETR RIGGS PROCEDURE: ECHO CMP - ECHO 2-D COMPLETE APPROVED REPORT EXAM: Two-dimensional and M-mode echocardiogram with Doppler and color Doppler. INDICATION ICD: Dizziness 2D Dimensions RVDd 3.3 cm LVEF(%) 69.8 (>50%) LVED Vol(simp.) 55.0 mL IVSd 0.8 (0.7-1.1cm) FS(%) 39 % LVES Vol(simp.) 18.0 mL LVDd 4.0 (3.8-5.6cm) LA (2D) 3.5 (1.6-4.0cm) LVEF(%, simp.) 67 % PWd 0.8 (0.7-1.1cm) Ao Root(2D) 3.0 (2.0-3.7cm) LA ESV INDEX (BP) 21.04 mL/m2 IVSs 0.9 cm LVOT diam 1.8 (1.8-2.4cm) LVDs 2.5 (2.5-4.0cm) IVC diam 1.9 cm PWs 0.9 cm Deformation Strain Apical 4 -20.2 % Apical 2 -21.0 % Apical 3 -19.9 % Global Strain -20.4 % M-Mode Dimensions EPSS 0.5 cm LA (MM) 3.8 (1.6-4.0cm) Ao Root(MM) 2.4 (2.0-3.7cm) Aortic Valve AoV Vmax 1.5 m/s Ao Peak GR 9.2 mmHg LVOT Vmax 1.6 m/s AoV VTI 0.4 m Ao Mean GR 6.4 mmHg LVOT VTI 0.37 m JH (VMAX) 2.76 cm2 JH (VTI) 2.6 cm2 Mitral Valve MV E Vmax 69.3 cm/s DECEL Time 295 ms MV A Vmax 90.7 cm/s P 1/2 T 45 ms E/A ratio 0.8 MVA (PHT) 4.9 cm2 TDI E/E' Medial 10.3 E/E' Lateral 11.5 Medial E' Peak V 6.76 cm/s Lateral E' Peak V 6.02 cm/s Pulmonary Valve PV Vmax 0.8 m/s PV VTI 0.18 m PV Mean GR 1.9 mmHg PV Peak GR 2.9 mmHg Tricuspid Valve TR Vmax 2.5 m/s RAP (EST) 3 mmHg RVSP 29.6 mmHg TR Peak GR 26.6 mmHg Left Ventricle The left ventricle is normal size. GLS -20.0% There is normal LV segmental wall motion. There is normal left ventricular wall thickness. The LVEF is > 55%. Stage I diastolic dysfunction. Right Ventricle The right ventricle is normal size. The right ventricular systolic function is normal. Atria The left atrium size is normal. The right atrium size is normal. Aortic Valve The aortic valve is normal in structure. No aortic regurgitation is present. There is no aortic valvular stenosis. Mitral Valve The mitral valve is normal in structure. There is trace mitral valve regurgitation noted. There is no mitral valve stenosis. Tricuspid Valve The tricuspid valve is normal in structure. There is trace of tricuspid valve regurgitation noted. Pulmonic Valve The pulmonary valve is normal in structure. There is no pulmonic valvular regurgitation. Great Vessels The aortic root is normal in size. The IVC is normal in size and collapses >50% with inspiration. Pericardium There is no pericardial effusion. Other Information Quality : Adequate Conclusion The LVEF is > 55%. GLS -20.0% There is normal LV segmental wall motion. There is no pericardial effusion. REASON: STENOSIS RULE OUT ORDERING PHYSICIAN: SELINA JACOBS NP PROCEDURE: CTA [facility] CT ANGIO HEAD AND NECK EXAM: CTA Neck with and without Intravenous Contrast. CLINICAL HISTORY: STENOSIS RULE OUT TECHNIQUE: Axial CTA images of the neck performed with and without intravenous contrast in the arterial phase. Coronal and sagittal reformatted images were generated and reviewed. 3-D reformatted images generated on an independent workstation were also reviewed. NASCET criteria were used in assessment of stenosis. CONTRAST: Contrast injected without incident. COMPARISON: None provided. FINDINGS: VASCULATURE: Internal carotid arteries: No stenosis by NASCET criteria. No dissection or occlusion. Common carotid arteries: No significant stenosis. No dissection or occlusion. External carotid arteries: Patent. Vertebral arteries: No significant stenosis. No dissection or occlusion. Soft tissues: No acute finding. Bones: No acute osseous abnormality. IMPRESSION: Unremarkable CTA of the neck. REASON: dizziness ORDERING PHYSICIAN: PETR RIGGS PROCEDURE: CAROTID - US CAROTID DUPLEX EXAMINATION: DUPLEX ULTRASOUND EXAMINATION OF THE BILATERAL CAROTID AND VERTEBRAL ARTERIES. CLINICAL HISTORY: Dizziness. COMPARISON: None provided. TECHNIQUE: Real-time ultrasound scan of the bilateral carotid and vertebral arteries, 2-D grayscale, with color Doppler flow and spectral waveform analysis. FINDINGS: Color and spectral Doppler interrogation of the carotid vessels on the right demonstrate peak systolic velocities as follows: CCA (Proximal and distal): 66 and 60 cm/s respectively. Bulb: 58 cm/s ECA: 61 cm/s ICA (Proximal, mid, and distal): 63, 53, and 63 cm/s respectively. Vertebral artery demonstrates antegrade flow: 34 cm/s. Right ICA/CCA ratio: 1.0 Peak systolic velocities on the left are as follows: CCA (Proximal and distal): 73 and 76 cm/s respectively. Bulb: 57 cm/s ECA: 95 cm/s ICA (Proximal, mid, and distal): 63, 74, and 94 cm/s respectively. Vertebral artery demonstrates antegrade flow: 50 cm/s. Left ICA/CCA ratio: 1.2 Both the common carotid arteries and their branches reveal mild intimal thickening. There are small calcified plaques in the bilateral carotid bulb without significant stenosis. High resistance flow in the right vertebral artery. IMPRESSION: Mild intimal thickening in bilateral carotid arteries and their branches. Small calcified plaques in the bilateral carotid bulb without significant stenosis There is no significant stenosis or flow limiting lesions in the remainder of the arteries. High resistance flow in the right vertebral artery, suggestive of distal stenosis. Recommend CT/MR angiogram. Assessment/Plan: discharged dx's ruled out orthostatic hypotensive autonomic imbalance improved syncope, POA Urinary tract infection, POA cultures no growth Leukocytosis, POA improved Hypokalemia, POA corrected Hypomagnesemia corrected Hypothyroidism PLAN: [ ] ADMISSION DATE: 06/30/2025 DISCHARGE DATE: 07/03/2025 DISPOSITION: Home CONDITION: Stable COMMUNICATIONS DIRECTOR(S): None FOLLOW UP APPOINTMENT[facility] PROCEDURES: None IMAGING (S) report attached to summary : CT a head and neck, carotid Dopplers MICROBIOLOGY: report attached to summary; urine cultures ACTIVITY: Ad juan alberto HOME MEDICATIONS reviewed CHANGES ON HOME MEDICATIONS losartan increased to 50 mg p.o. daily NEW MEDICATIONS losartan 50 mg p.o. daily, montelukast 10 mg p.o. at bedtime TEACHING: Advised patient to monitor blood pressure at home. Keep a log and present to PCP. Avoid going outside when polyps levels are high and extremely hot days. Emergency instructions: The patient was instructed to present to the nearest Emergency Department or call 911 should their symptoms return or worsen. Discharge Instructions: RUN DATE: 07/02/25 [facility] RUN TIME: 0038 [address] [address], [place], [place] [id number] [place] [address] of Laboratories [place] # [id number] Service Mechanic: Kristy Amaya DO Specimen Report -- PATIENT: BRIANNA STOLL ACCT: [id number] LOC: [facility] U: [id number] AGE/SX: 79/F ROOM: [facility] RE06/30/[address]: KATY VEGA MD : 1945 BED: 1 DIS: STATUS: ADM IN TLOC: SPEC: [id number] NIKOLAI: 06/30/25 STATUS: COMP REQ: [id number] RECD: 06/30/[address]: ANGIE JOLLY SOURCE: URINE CC ENTR: 06/30/[address]: NONE SPDESC: SHANNAN CARLIN MD ORDERED: URINE CULTURE Procedure Result Adri Date-Time URINE CULTURE Final 07/02/25-1836 REPORT URINE 10,000 TO 50,000 CFU RUN DATE: 07/02/25 [facility] RUN TIME: [address] [address], [place] [address] Department of Laboratories CLIA # [id number] Service Mechanic: Kristy Amaya DO Specimen Report ---- -------- PATIENT: BRIANNA STOLL ACCT: [id number] LOC: [facility] U: [id number] AGE/SX: 79/F ROOM: [facility] RE06/30/[address]: KATY VEGA MD, DOB: 1945 BED: 1 DIS: STATUS: ADM IN TLOC: SPEC: [id number] NIKOLAI: 06/30/25 STATUS: RES REQ: [id number] RECD: 06/30/[address]: PETR RIGGSP SOURCE: BLOOD ENTR: 06/30/[address]: HERMILO SPDC: SHANNAN CARLIN MD ORDERED: BLOOD CULTURE COMMENTS: What is the Source? BLOOD Procedure Result Adri Date-Time BLOOD CULT Preliminary 07/02/25 NO GROWTH AFTER 48 HOURS RUN DATE: 07/02/25 [facility] RUN TIME: [address] [address], [place] [address] Department of Laboratories CLIA # [id number] Service Mechanic: Kristy Amaya DO Specimen Report PATIENT: BRIANNA STOLL ACCT: [id number] LOC: 3A U: [id number] AGE/SX: 79/F ROOM: [facility] RE06/30/[address]: KATY VEGA MD : 1945 BED: 1 DIS: STATUS: ADM IN TLOC: SPEC: [id number] NIKOLAI: 06/30/25 STATUS: RES REQ: [id number] RECD: 06/30/[address]: PETR RIGGS SOURCE: BLOOD ENTR: 06/30/25-[address]: NONE SPDESC: SHANNAN CARLIN MD ORDERED: BLOOD CULTURE COMMENTS: What is the Source? BLOOD Procedure Result Adri Date-Time BLOOD CULT Preliminary 07/02/25-2044 NO GROWTH AFTER 48 HOURS Home Medications: Reported Medications Simvastatin (Simvastatin) 20 Mg Tablet, 1 TAB PO HS for 30 Days, #30 TAB 0 Refills 06/30/25 Losartan Potassium (Losartan Potassium) 25 Mg Tablet, 1 TAB PO DAILY for 30 Days, #30 TAB 0 Refills 06/30/25 Amlodipine Besylate (Amlodipine Besylate) 10 Mg Tablet, 1 TAB PO DAILY for 30 Days, #30 TAB 0 Refills 06/30/25 Levothyroxine Sodium (Levothyroxine) 112 Mcg Capsule, 1 CAP PO DAILY for 30 Days, #30 CAP 0 Refills 06/30/25 Sertraline HCl (Sertraline HCl) 50 Mg Tablet, 50 MG PO DAILY, TAB 06/30/25 New Medications: Losartan Potassium (Cozaar) 50 Mg Tablet 50 MG PO DAILY for 30 Days, #30 TAB Continued Medications: Amlodipine Besylate (Amlodipine Besylate) 10 Mg Tablet 1 TAB PO DAILY for 30 Days, #30 TAB 0 Refills Levothyroxine Sodium (Levothyroxine) 112 Mcg Capsule 1 CAP PO DAILY for 30 Days, #30 CAP 0 Refills Sertraline HCl (Sertraline HCl) 50 Mg Tablet 50 MG PO DAILY, TAB Simvastatin (Simvastatin) 20 Mg Tablet 1 TAB PO HS for 30 Days, #30 TAB 0 Refills Discontinued Medications: Losartan Potassium (Losartan Potassium) 25 Mg Tablet 1 TAB PO DAILY for 30 Days, #30 TAB 0 Refills Time spent arranging discharge: 31-60 minutes ATTESTATION BY PHYSICIAN I have seen and examined the patient. I reviewed the documentation, medical decision making, and treatment plan as noted by the mid-level provider above. I agree with the findings and plan of care. KATY VEGA MD, ELIZABETH NP Jul 03, 2025 07:59
[2025-07-03 08:00] VITALS: BP_SYST 122; BP_SYST 136; BP_SYST 151; BP_DIAS 73; BP_DIAS 81; BP_DIAS 90; PULSE 103; RESP 20; TEMP 98.2
[2025-07-03 12:00] VITALS: BP 144/71; PULSE 104; RESP 19; TEMP 98.2
--- NOTE | 2025-07-03 17:08 | NUR ---
DC INSTRUCTIONS GIVEN AND ACKNOWLEDGED. IV REMOVED
== END 2025-07-03 17:30 | disposition home or self-care (01) | DRG 74 ==
LOC: EDH 16:24 → EDHIP 20:16 → 3AH 07-01 01:55
PROVIDERS: ADMIT Internal Medicine; ATTEND Internal Medicine
DX: G90.89 Other disorders of autonomic nervous system (principal); N39.0 Urinary tract infection, site not specified; R65.10 Systemic inflammatory response syndrome (SIRS) of non-infectious origin without acute organ dysfunction; I65.01 Occlusion and stenosis of right vertebral artery; E87.6 Hypokalemia; E86.0 Dehydration; E78.00 Pure hypercholesterolemia, unspecified; E83.42 Hypomagnesemia; I10 Essential (primary) hypertension; E03.9 Hypothyroidism, unspecified; Z51.5 Encounter for palliative care
CPT/HCPCS: 36415; 70496; 70498; 80048; 80053; 81001; 82550; 82948; 83605; 83735; 84100; 84132; 84145; 84443; 84484; 85025; 87040; 87086; 87426; 87804; 93005; 93306; 93356; 93880; 94640; 94664; 96361; 96365; 99285; G0378; J0360; J0696; J1650; J7030; A4510

== ENCOUNTER 2025-07-05 08:39 | Observation (INO) | payer MEDICARE, OTHER ==
[~2025-07-05] VITALS: Ht 162.6 cm; Wt 69.9 kg
[2025-07-05] VITALS (7 sets, daily range): BP systolic 99–159; BP diastolic 61–72; PULSE 75–89; RESP 16–20; TEMP 97.6–98.9; O2SAT 97
[~2025-07-05 08:39] MED LIST: AMLO-258 PO; LEVO112C5 PO; LOSA-418 PO; SERT-439 PO; SIMV-43 PO
--- NOTE | 2025-07-05 08:43 | NUR ---
BG 111
[2025-07-05 08:57] LABS: IMMATURE GRANULOCYTE ABSOLUTE 0.03 K/uL (0-1); NUCLEATED RED BLOOD CELLS 0.0 % (0.0-0.19); PLATELET COUNT (AUTO) 299 K/uL (130-400); RED BLOOD CELL COUNT(AUTO) 4.44 MIL/uL (4.00-5.50); RED CELL DISTRIBUTION WIDTH 12.7 % (11.0-15.5); WHITE BLOOD COUNT (AUTO) 9.2 K/uL (4.8-10.8)
[2025-07-05] MEDS: 0.9% NACL 500ML IV.SOLN 500 ML IV ONE (09:05)
[2025-07-05 09:07] LABS: INR 0.96 (0.85-1.15)
[2025-07-05 09:08] LABS: CREATININE 1.1 mg/dL (0.5-1.0); GLOMERULAR FILTR. RATE CALC 51.0 mL/min (>90); GLUCOSE,RANDOM 108.0 mg/dL (70-105); SODIUM SERUM 136.0 mmol/L (136-145); UREA NITROGEN, BLOOD 9.0 mg/dL (7-18)
[2025-07-05 09:14] LABS: ASPARTATE AMINOTRANSFERASE 132.0 U/L (10-37); CREATINE KINASE, TOTAL 55.0 U/L (21-232); TOTAL PROTEIN, SERUM 6.8 g/dL (6.0-8.3)
[2025-07-05 09:21] LABS: APPEARANCE,URINE CLEAR (CLEAR); GLUCOSE, URINE (UA) NEGATIVE (NEGATIVE); LEUKOCYTE ESTERASE ,URINE NEGATIVE Leu/uL (NEGATIVE); NITRATE,URINE NEGATIVE (NEGATIVE); OCCULT BLOOD,URINE NEGATIVE (NEGATIVE)
--- NOTE | 2025-07-05 09:32 | NUR ---
PT PASSED THE SWALLOWING TEST
[2025-07-05 09:34] LABS: ADD UA MICROSCOPIC YES
--- NOTE | 2025-07-05 09:35 | HMCIMG ---
EXAM: CT Head Without IV contrast. CLINICAL HISTORY: CODE STROKE TECHNIQUE: Axial computed tomography images of the head/brain without intravenous contrast. COMPARISON: Compared with the previous CT dated 07/02. FINDINGS: BRAIN: Mild to moderate age-related neuroparenchymal atrophy. Mild chronic small vessel ischemic changes in bilateral periventricular white matter. No evidence of acute hemorrhage. No mass lesion. No CT evidence for acute territorial infarct. No midline shift or extra-axial collections. VENTRICLES: No hydrocephalus. ORBITS: The orbits are unremarkable. SINUSES AND MASTOIDS: The paranasal sinuses and mastoid air cells are clear. BONES: No fracture. Hyperostosis frontalis interna. SOFT TISSUES: Unremarkable. IMPRESSION: 1. No acute intracranial findings. If clinical concern persist recommend MRI of the brain for further evaluation. /[place]
--- NOTE | 2025-07-05 10:11 | HMCIMG ---
EXAM: CR Chest, 1 View. CLINICAL HISTORY: [facility] COMPARISON: None provided. FINDINGS: LUNGS: There is no mass, infiltrate, or acute pulmonary abnormality. PLEURAL SPACES: No pleural effusion or pneumothorax. MEDIASTINUM: The cardiomediastinal silhouette is within normal limits. BONES: No acute osseous abnormality. IMPRESSION: No acute cardiopulmonary pathology is evident. /[place]
--- NOTE | 2025-07-05 11:29 | HP ---
[facility] HISTORY AND PHYSICAL Date of Service: Jul 05, 2025 Time of Service: 11:19 HISTORY OF PRESENT ILLNESS: [ ] Admission date 07/05/2025 Chief complaint symptoms of stroke PCP: Alvarez Hernandez MD 79-year-old female presents in ED with chief complaints of symptoms of stroke. Patient was recently hospitalized for syncope in dizziness. workup was done echo LV EF 55%, carotid Dopplers significant stenosis, was negative on that admission patient's blood pressure medication was adjusted increase her losartan to 50 daily she was on 25 mg. The patient blood pressure on arrival was hypotensive. Patient is having difficulty to call what happened earlier this morning. She reports she got up between six or seven and she noted that her right arm we will shift to her left side uncontrollably. Was unable to move her right arm back. She says she felt was not able to speak. she denies blurred vision, double vision, sensory deficits, or slurred speech. 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 Woke up her and was brought to ER for further evaluation and treatment. Imaging: CT head: No acute intracranial findings. If clinical concern persist recommend MRI of the brain for further evaluation. last admission: 07/01/25 carotid : Mild intimal thickening in bilateral carotid arteries and their branches. Small calcified plaques in the bilateral carotid bulb without significant stenosis There is no significant stenosis or flow limiting lesions in the remainder of the arteries.High resistance flow in the right vertebral artery, suggestive of distal stenosis. CTA head and neck: Unremarkable CTA of the neck. REVIEW OF SYSTEMS 812 point ROS obtained all relevant positive documented otherwise RS negative PAST MEDICAL HISTORY: [ ]Hypertension, hypothyroidism, hyperlipidemia] PAST SURGICAL HISTORY: [ ]Pituitary tumor excision, cholecystectomy, BTL] PAST SOCIAL HISTORY: [ ] [Negative for smoking, alcohol use, drug use. Patient lives with the , FAMILY HISTORY: [ ] noncontributory Coded Allergies: codeine (Unverified Adverse Reaction, Unknown, 06/30/25) NAUSEA, VOMITING PHYSICAL EXAM GENERAL APPEARANCE: The patient is awake, alert, and oriented, in no acute cardiopulmonary distress. NEUROLOGICAL: Cranial nerves II-XII grossly intact. Motor is 5/5 in bilateral upper and lower extremities proximal to distal. No sensory deficits. HEENT: Face is symmetric. Pupils are equal and reactive. Extraocular movements are intact. NECK: Supple. No JVD. No thyromegaly. No submental, submandibular, pre- /postauricular, occipital or supraclavicular lymphadenopathy. CHEST: Normal chest expansion. No Telemetry. LUNGS: Absence of any rales, rhonchi or any wheezing. CARDIOVASCULAR: Regular. S1 and S2 normal. No appreciable rubs, murmurs or gallops. ABDOMEN: Soft, nontender, and nondistended. There is no rebound, voluntary guarding, or rigidity. : Deferred. No Gama. EXTREMITIES: Non-edematous and not cyanotic. No clubbing. Good capillary refill. SKIN: No skin breakdown. Vital Sign (Last 24 Hours) 07/05/25 10:00 Temp 99.0 Pulse 75 Resp 20 B/P (MAP) 128/59 Pulse Ox 97 O2 Delivery Room Air* O2 Flow Rate 0 FiO2 21 LABS: Laboratory: Test 07/05/25 09:05 07/05/25 08:51 Range/Units Urine Color YELLOW YELLOW Urine Appearance CLEAR CLEAR Urine pH 5.0 5.0-8.0 Urine Specific [place] 1.026 1.001-1.031 Urine Protein NEGATIVE NEGATIVE mg/dL Urine Glucose (UA) NEGATIVE NEGATIVE mg/dL Urine Ketones NEGATIVE NEGATIVE mg/dL Urine Occult Blood NEGATIVE NEGATIVE Urine Nitrate NEGATIVE NEGATIVE Urine Bilirubin NEGATIVE NEGATIVE mg/dL Urine Urobilinogen 0.2 0.2-1.0 mg/dL Urine Leukocyte Esterase NEGATIVE NEGATIVE Elizabeth/uL Urine RBC 2-5 H 0-1 /HPF Urine WBC 0-1 0-1 /HPF Urine Bacteria None None Seen /HPF White Blood Count 9.2 4.8-10.8 K/uL Red Blood Count 4.44 4.00-5.50 MIL/uL Hemoglobin 13.6 12.0-16.0 g/dL Hematocrit 41.5 36-48 % Mean Corpuscular Volume 93.5 79-99 fL Mean Corpuscular Hemoglobin 30.6 27.0-33.0 pg Mean Corpuscular Hemoglobin Concent 32.8 32.0-36.0 g/dL Red Cell Distribution Width 12.7 11.0-15.5 % Platelet Count 299 130-400 K/uL Mean Platelet Volume 10.3 7.5-10.5 fL Immature Granulocyte % (Auto) 0.3 0-1 % Neutrophils (%) (Auto) 57.1 40.0-77.0 % Lymphocytes (%) (Auto) 28.1 21.0-51.0 % Monocytes (%) (Auto) 8.6 3.0-13.0 % Eosinophils (%) (Auto) 5.0 0.0-8.0 % Basophils (%) (Auto) 0.9 0.0-5.0 % Neutrophils # (Auto) 5.3 1.8-7.7 K/uL Lymphocytes # (Auto) 2.6 1.0-4.8 K/uL Monocytes # (Auto) 0.8 0.1-1.0 K/uL Eosinophils # (Auto) 0.46 0.00-0.70 K/uL Basophils # (Auto) 0.08 0.00-0.20 K/uL Absolute Immature Granulocyte (auto 0.03 0-1 K/uL Nucleated Red Blood Cells 0.0 0.0-0.19 % Prothrombin Time 10.2 9.6-11.6 SEC Prothromb Time International Ratio 0.96 0.85-1.15 Activated Partial Thromboplast Time 27.3 26.3-35.5 SEC Sodium Level 136 136-145 mmol/L Potassium Level 4.1 3.5-5.1 mmol/L Chloride Level 101 101-111 mmol/L Carbon Dioxide Level 30 21-32 mmol/L Blood Urea Nitrogen 9 7-18 mg/dL Creatinine 1.1 H 0.5-1.0 mg/dL Glomerular Filtration Rate Calc 51 >90 mL/min Random Glucose 108 H 70-105 mg/dL Lactic Acid Level 1.5 0.8-2.5 mmol/L Total Calcium 8.8 8.5-10.1 mg/dL Total Bilirubin 0.8 0.2-1.0 mg/dL Direct Bilirubin 0.2 0.0-0.3 mg/dL Aspartate Amino Transf (AST/SGOT) 132 H 10-37 U/L Alanine Aminotransferase (ALT/SGPT) 113 H 12-78 U/L Alkaline Phosphatase 144 H 50-136 U/L Ammonia 13 11-32 umol/L Total Creatine Kinase 55 21-232 U/L Troponin I High Sensitivity 10 4-50 ng/L Total Protein 6.8 6.0-8.3 g/dL Albumin 3.3 L 3.5-5.0 g/dL DIAGNOSTICS / RADIOLOGY: [ ] REASON: confusion ORDERING PHYSICIAN: GRIFFIN HOWARD MD PROCEDURE: HEAD WO - CT HEAD/BRAIN W/O CONTRAST ADDENDUM REPORT ADDENDUM: Results were shared by telephone at 10:41 am on 07-05-25 and acknowledged by Juan Lawson /[place] EXAM: CT Head Without IV contrast. CLINICAL HISTORY: CODE STROKE TECHNIQUE: Axial computed tomography images of the head/brain without intravenous contrast. COMPARISON: Compared with the previous CT dated 07/02. FINDINGS: BRAIN: Mild to moderate age-related neuroparenchymal atrophy. Mild chronic small vessel ischemic changes in bilateral periventricular white matter. No evidence of acute hemorrhage. No mass lesion. No CT evidence for acute territorial infarct. No midline shift or extra-axial collections. VENTRICLES: No hydrocephalus. ORBITS: The orbits are unremarkable. SINUSES AND MASTOIDS: The paranasal sinuses and mastoid air cells are clear. BONES: No fracture. Hyperostosis frontalis interna. SOFT TISSUES: Unremarkable. IMPRESSION: 1. No acute intracranial findings. If clinical concern persist recommend MRI of the brain for further evaluation. /[place] DICTATED BY: SHAYY PRABHAKAR Jr., MD DATE: 07/05/25 1044 ELECTRONICALLY SIGNED BY: DATE: EXAM: CT Head Without IV contrast. CLINICAL HISTORY: CODE STROKE TECHNIQUE: Axial computed tomography images of the head/brain without intravenous contrast. COMPARISON: Compared with the previous CT dated 07/02. FINDINGS: BRAIN: Mild to moderate age-related neuroparenchymal atrophy. Mild chronic small vessel ischemic changes in bilateral periventricular white matter. No evidence of acute hemorrhage. No mass lesion. No CT evidence for acute territorial infarct. No midline shift or extra-axial collections. VENTRICLES: No hydrocephalus. ORBITS: The orbits are unremarkable. SINUSES AND MASTOIDS: The paranasal sinuses and mastoid air cells are clear. BONES: No fracture. Hyperostosis frontalis interna. SOFT TISSUES: Unremarkable. IMPRESSION: 1. No acute intracranial findings. If clinical concern persist recommend MRI of the brain for further evaluation. ASSESSMENT: Rule out stroke versus TIA POA hypotensive on arrival POA Hypertensive just recent change her medication POA Hypothyroidism Elevated LFTs PLAN: Admit: Surgical with tele condition: Guarded Status: Full code activity: bedrest IVF: [facility] Imaging MRI without contrast speech eval, PT eval Aspiration precaution: HOB elevated at 45 degree at all time Labs cbc, cmp, mag+ Replace electrolytes as needed as per protocol to keep potassium above 4.0 magnesium 2.0. Home medications pending to be reviewed by RN nurse. will hold blood pressure medication keep systolic 160's the next 48 hours PRN: MEDICATIONS Tylenol 650 mg po every 4 hrs for fever zofran 4 mg IV every 6 hrs for n/v bowel regiment: lactulose 20 gm PO BID PRN constipation Pain management: Tylenol as needed fall precaution Supportive measures: DVT ppx, GI ppx all questions answered time spent: > 35 min Supervising MD: Dr. Jarad parra/abraham This document was generated in part using voice recognition software, occasional wrong word or sound alike substitutions may have occurred due to the inherent limitations of voice recognition software. Read the chart carefully and recogni ze using context, where the substitutions have occurred. Although every effort was made to edit the content, boarder hand and typing errors may occur ADVANCED CARE PLANNING 1. Which of the following were discussed? Hospice Care - Yes / No Therapeutic options - Yes / No Advance Directives - Yes / No Other discussions - 2. Discussed with who? 3. Voluntary nature of this service was explained to the patient? Yes / No 4. Amount of time spent - 5. Reviewed by Physician? (if this service was performed by NPP) Yes / No ATTESTATION BY PHYSICIAN I have seen and examined the patient. I reviewed the documentation, medical decision making, and treatment plan as noted by the mid-level provider above. I agree with the findings and plan of care. KATY VEGA MD, ELIZABETH SCIENTIFIC SOFTWARE DEVELOPER Jul 05, 2025 11:29
[2025-07-05] MEDS ORDERED: LACTULOSE 20 GM/30 ML UDCUP PO PRN (11:30)
[2025-07-05] MEDS ORDERED: PoTASSium chl 10% ELIXIR 20MEQ 20 MEQ/15 ML UDCUP PO PRN (11:30)
[2025-07-05] MEDS ORDERED: MAGNESIUM 2GM PREMIX 50ML 50 ML IV PRN (11:30)
--- NOTE | 2025-07-05 11:41 | ERN ---
ED Note History of Present Illness Stated Complaint: RULE OUT TIA VERSUS CVA; HYPERTENSIVE URGENCY Chief Complaint: Stroke Symptoms Time Seen by MD: 08:43 Dictation: 79-year-old female presenting to the emergency department with left arm numbness and trouble speaking since last night. Patient woke up this morning with the symptoms. Patient also reports that her blood pressure medicine has been lalitha nge. No chest pain or shortness of breath. No weakness. 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 Reported Medications Simvastatin (Simvastatin) 20 Mg Tablet, 1 TAB PO HS for 30 Days, #30 TAB 0 Refills 06/30/25 Amlodipine Besylate (Amlodipine Besylate) 10 Mg Tablet, 1 TAB PO DAILY for 30 Days, #30 TAB 0 Refills 06/30/25 Levothyroxine Sodium (Levothyroxine) 112 Mcg Capsule, 1 CAP PO DAILY for 30 Days, #30 CAP 0 Refills 06/30/25 Sertraline HCl (Sertraline HCl) 50 Mg Tablet, 50 MG PO DAILY, TAB 06/30/25 Discontinued Reported Medications Losartan Potassium (Losartan Potassium) 25 Mg Tablet, 1 TAB PO DAILY for 30 Days, #30 TAB 0 Refills 06/30/25 Past Medical History Past Medical History: High Cholesterol, Hypertension, Hypothyroid, UTI Additional Past Medical Hx: PITUATARY TUMOR Surgical History: Cholecystectomy Surgical History Other: BRAIN PITUITARY GLAND Review of System Dictation Constitutional: Negative for fever,chills, and weight loss Eyes: Negative for injury, pain,redness, and discharge ENT: Negative for injury,pain or swelling Cardiovascular: Negative for chest pain, palpitations, and edema Respiratory: Negative for shortness of breath, cough, and wheezing, Abdomen/GI: Negative for abdominal pain, nausea, vomiting, diarrhea, and constipation Back: Negative for injury and pain : Negative for injury, bleeding and discharge MS/Extremity: Negative for injury and deformity Skin: Negative for rash, and discoloration Neuro: Per HPI Initial Vital Sign VS Vital Signs Date Time Temp Pulse Resp B/P (MAP) Pulse Ox O2 Delivery O2 Flow Rate FiO2 07/05/25 08:50 99.0 93 16 99/79 97 Room Air 07/05/25 08:53 0 21 Physical Exam Dictation General: awake, alert, NAD Head/Face: Normocephalic, atraumatic Eyes: PERRL, EOMI, vision at baseline ENT: oral cavity clear, TMs clear, no signs of infection Neck: Trachea midline, supple, no nuchal rigidity Cardiovascular: RRR, normal S1/S2, No MRGs, no JVD Respiratory: CTAB, no respiratory distress, No rales or wheezes Abdomen: Soft, non-tender, non-distended, normal bowel sounds, no guarding or rebound. Skin: Warm, dry, normal turgor, no rash MS/Extremity: Pulses equal, no cyanosis, neurovascular intact, FROM Neuro: COAx4, GCS 15, strength 5/5, CN 2-12 intact, normal cerebellar exam, normal gait, NIH stroke scale one Psych: Normal behavior, mood, and affect normal Results (Laboratory/Radiology) Laboratory/Radiology Laboratory Tests Test 07/05/25 08:51 07/05/25 09:05 White Blood Count 9.2 K/uL (4.8-10.8) Red Blood Count 4.44 MIL/uL (4.00-5.50) Hemoglobin 13.6 g/dL (12.0-16.0) Hematocrit 41.5 % (36-48) Mean Corpuscular Volume 93.5 fL (79-99) Mean Corpuscular Hemoglobin 30.6 pg (27.0-33.0) Mean Corpuscular Hemoglobin Concent 32.8 g/dL (32.0-36.0) Red Cell Distribution Width 12.7 % (11.0-15.5) Platelet Count 299 K/uL (130-400) Mean Platelet Volume 10.3 fL (7.5-10.5) Immature Granulocyte % (Auto) 0.3 % (0-1) Neutrophils (%) (Auto) 57.1 % (40.0-77.0) Lymphocytes (%) (Auto) 28.1 % (21.0-51.0) Monocytes (%) (Auto) 8.6 % (3.0-13.0) Eosinophils (%) (Auto) 5.0 % (0.0-8.0) Basophils (%) (Auto) 0.9 % (0.0-5.0) Neutrophils # (Auto) 5.3 K/uL (1.8-7.7) Lymphocytes # (Auto) 2.6 K/uL (1.0-4.8) Monocytes # (Auto) 0.8 K/uL (0.1-1.0) Eosinophils # (Auto) 0.46 K/uL (0.00-0.70) Basophils # (Auto) 0.08 K/uL (0.00-0.20) Absolute Immature Granulocyte (auto 0.03 K/uL (0-1) Nucleated Red Blood Cells 0.0 % (0.0-0.19) Prothrombin Time 10.2 SEC (9.6-11.6) Prothromb Time International Ratio 0.96 (0.85-1.15) Activated Partial Thromboplast Time 27.3 SEC (26.3-35.5) Sodium Level 136 mmol/L (136-145) Potassium Level 4.1 mmol/L (3.5-5.1) Chloride Level 101 mmol/L (101-111) Carbon Dioxide Level 30 mmol/L (21-32) Blood Urea Nitrogen 9 mg/dL (7-18) Creatinine 1.1 mg/dL (0.5-1.0) H Glomerular Filtration Rate Calc 51 mL/min (>90) Random Glucose 108 mg/dL (70-105) H Lactic Acid Level 1.5 mmol/L (0.8-2.5) Total Calcium 8.8 mg/dL (8.5-10.1) Total Bilirubin 0.8 mg/dL (0.2-1.0) Direct Bilirubin 0.2 mg/dL (0.0-0.3) Aspartate Amino Transf (AST/SGOT) 132 U/L (10-37) H Alanine Aminotransferase (ALT/SGPT) 113 U/L (12-78) H Alkaline Phosphatase 144 U/L (50-136) H Ammonia 13 umol/L (11-32) Total Creatine Kinase 55 U/L (21-232) Troponin I High Sensitivity 10 ng/L (4-50) Total Protein 6.8 g/dL (6.0-8.3) Albumin 3.3 g/dL (3.5-5.0) L Urine Color YELLOW (YELLOW) Urine Appearance CLEAR (CLEAR) Urine pH 5.0 (5.0-8.0) Urine Specific [place] 1.026 (1.001-1.031) Urine Protein NEGATIVE mg/dL (NEGATIVE) Urine Glucose (UA) NEGATIVE mg/dL (NEGATIVE) Urine Ketones NEGATIVE mg/dL (NEGATIVE) Urine Occult Blood NEGATIVE (NEGATIVE) Urine Nitrate NEGATIVE (NEGATIVE) Urine Bilirubin NEGATIVE mg/dL (NEGATIVE) Urine Urobilinogen 0.2 mg/dL (0.2-1.0) Urine Leukocyte Esterase NEGATIVE [place]/uL Urine RBC 2-5 /HPF (0-1) H Urine WBC 0-1 /HPF (0-1) Urine Bacteria None /HPF (None Seen) Labs Reviewed?: Yes EKG Comment: Heart rate 83, normal sinus rhythm normal intervals ED Course ED Course Orders Procedure Category Date Status Time Nihss Every Shift And CPOE 07/05/25 Transmitted PRN 08:41 Initiate Post Tpa CPOE 07/05/25 Transmitted Orders 08:41 Neuro Checks Every CPOE 07/05/25 Transmitted 4hrs X48hrs 08:41 Provide Stroke & Risk CPOE 07/05/25 Transmitted Factor 08:41 Activate Stroke/Cva CPOE 07/05/25 Transmitted Care Plans 08:41 Permissive Htn For CPOE 07/05/25 Transmitted Tias & Ais 08:41 Hemorrhagic Strokes: CPOE 07/05/25 Transmitted Maintain 08:[address] 07/05/25 Transmitted Order 08:41 Pt Eval And Treat PT 07/05/25 Transmitted 08:41 Scds For Stroke And CPOE 07/05/25 Transmitted Non-Ambula 08:41 12 Lead Ekg Tracing- EKG 07/05/25 Logged Technical 08:43 Ammonia LAB 07/05/25 Complete 08:43 Basic Metabolic Panel LAB 07/05/25 Complete 08:43 Blood Cult [place] 07/05/25 In Process 08:43 Cbc With Differential LAB 07/05/25 Complete 08:43 Hepatic Function Panel LAB 07/05/25 Complete 08:43 Creatine Kinase, Total LAB 07/05/25 Complete 08:43 Lactic Acid LAB 07/05/25 Complete 08:43 Pt And Ptt LAB 07/05/25 Complete 08:43 Troponin I High LAB 07/05/25 Complete Sensitivity 08:43 Urinalysis Profile LAB 07/05/25 Complete 08:43 Chest 1vw RAD 07/05/25 Resulted 08:43 Ct Head/Brain W/O CT 07/05/25 Resulted Contrast 08:43 0.9% Nacl 500ml PHA 07/05/25 Complete Iv.Soln (Ns 500ml 09:00 Admit Orders ADM 07/05/25 Transmitted 11:14 Mr Brain Wo Con MRI 07/05/25 Logged 11:14 Pt Eval And Treat PT 07/05/25 Transmitted 11:[address] 07/05/25 Transmitted Order 11:[address] 07/05/25 Transmitted 11:14 Apply Scds CPOE 07/05/25 Transmitted 11:14 Neurology Consult CONPHYSVC 07/05/25 Transmitted 11:14 Acetaminophen 325 Tab PHA 07/05/25 In Process (Tylenol 325mg Tab 11:30 Ondansetron 4mg Inj PHA 07/05/25 In Process (Zofran 4mg Inj) 11:30 Lactulose 20 Gm/30 Ml PHA 07/05/25 In Process Udcup (Constulose 11:30 Famotidine 20mg Tab PHA 07/06/25 In Process (Pepcid 20mg Tab) 09:00 *Nursing CPOE 07/05/25 Transmitted Communication: 11:26 Activity: Bedrest CPOE 07/05/25 Transmitted 11:26 Cbc With Differential LAB 07/06/25 Verified 04:00 Comprehensive LAB 07/06/25 Verified Metabolic Panel 04:00 Magnesium LAB 07/06/25 Verified 04:00 Magnesium 2gm Premix PHA 07/05/25 Logged 50ml (Magnesium 2gm 11:30 Initiate Po YIFAN 07/05/25 In Process Hypokalemia Protoc 11:26 Potassium Chloride PHA 07/05/25 Logged 20meq/100ml ([place] 11:30 Potassium Chl 10% PHA 07/05/25 Logged Elixir 20meq (Kcl 10% 11:30 Potassium Chloride PHA 07/05/25 Logged 20meq Er (K-Dur/Klor- 11:30 Notify Physician If CPOE 07/05/25 Transmitted There Is 11:26 Notify Md On The Next CPOE 07/05/25 Transmitted 11:26 Notify Md On The CPOE 07/05/25 Transmitted Next(Cont.) 11:26 Current Medications Medications (Trade) Dose Ordered Sig/Gisella Route PRN Reason Start Time Stop Time Status Last Admin Dose Admin Sodium Chloride 500 ml @ 0 mls/hr ONCE ONCE IV 07/05/25 09:00 07/05/25 09:01 DC 07/05/25 09:05 Vital Signs Date Time Temp Pulse Resp B/P (MAP) Pulse Ox O2 Delivery O2 Flow Rate FiO2 07/05/25 10:00 99.0 75 20 128/59 97 Room Air* 0 21 07/05/25 08:53 99.0 93 20 99/79 97 Room Air* 0 21 07/05/25 08:50 99.0 93 16 99/79 97 Room Air Medical Decision Making MDM MDM: Differential diagnosis: Rationale: Tests considered and ordered secondary to shared decision making include: labs, ECG and radiology Previous outside records reviewed: Old ER visits. Risk of complication and/or morbidity or mortality of patient management: None Medications-Per medication reconciliation Need for hospitalization: Patient does meet criteria for hospitalization. Need for emergency major/minor surgery: No There are no social concerns with this patient. Prescription drug management Prescriptions will include symptomatic care Patient's prior external medical records from other ER visits were reviewed by me as indicated. Prior testing and results from previous visits were reviewed. Prior tests were taken into account with medical decision making and resource utilization, independent historian/historians were used to obtain complete m edical history. I independently interpreted the test that were performed, results were reviewed by me and considered findings on radiology if ordered. Medical management and examination interpretation discussions were had by me with other qualified healthcare professionals as indicated for the patient's care. 79-year-old female with neuro symptoms, TIA, permissively hypertensive for cerebral perfusion pressure negative CT scan admitting for further care and evaluation. NIH STROKE SCALE: NIH STROKE SCALE Response (Comments) Value Level of Consciousness Alert 0 Ask patient month and their age Answers both correct 0 Command to open eyes, make fist and let go Obeys both correct 0 Visual Field Testing No Visual Field Loss 0 Facial Paresis Normal / Symmetrical 0 Motor Function - Left Arm Normal 0 Motor Function - Right Arm Normal 0 Motor Function - Left Leg Normal 0 Motor Function - Right Leg Normal 0 Limb Ataxia Present in 1 limb 1 Sensory-pin prick to arms, legs, trunk and face Normal 0 Best Language (describe picture, name items and read) No Aphasia 0 Dysarthria (read several words) Normal Articulation 0 Extinction and Inattention Normal 0 Total DX & DISP Disposition: Inpatient Departure Impression: Primary Impression: CVA (cerebral vascular accident) Condition: Stable Referrals: SHANNAN CARLIN MD (PCP) GRIFFIN HOWARD MD Jul 05, 2025 11:40
--- NOTE | 2025-07-05 11:54 | NUR ---
HANDOFF REPORT RECEIVED FROM AGUSTÍN BERUMEN.
--- NOTE | 2025-07-05 11:54 | NUR ---
REPORT GIVEN TO AGUSTÍN MOHAN.
[2025-07-05] MEDS ORDERED: MONT-39 PO (12:40)
--- NOTE | 2025-07-05 13:02 | NUR ---
ATTEMPTED TO CALL REPORT 2 TIMES, NO ANSWER. WILL CALL AGAIN.
--- NOTE | 2025-07-05 13:25 | NUR ---
REPORT GIVEN TO LENKA. PATIENT TRANSFERRED TO FOURTH FLOOR. ALL BELONGINGS AT BEDSIDE. FAMILY MEMBER AT BEDSIDE.
--- NOTE | 2025-07-05 14:35 | CONS ---
CONSULTATION NOTE Date of Service: Jul 05, 2025 Reason for Consultation: eval of right UE stiffness Requesting Physician: Hospitalist HISTORY OF PRESENT ILLNESS: Ms. Hanson is a 79-year-old right-handed female with a history of hypothyroidism, pituitary tumor removal, cholecystectomy, and dyslipidemia presenting to the hospital with new-onset right arm stiffness and involuntary movements. The patient reports that she was discharged from the hospital on Sunday and went to [place] on Sunday due to a tooth-related issue. Upon returning home Sunday, she went to sleep as she hadn't slept since Sunday. This morning, while debating whether to go back to sleep or wake up, she experienced sudden stiffness and involuntary jerking movements in her right arm. The patient states she was unable to control or move her arm during this episode, which lasted approximately 30 minutes. Her witnessed the event and immediately brought her to the hospital. The patient denies any prior history of similar episodes, seizures, or epilepsy. Ms. Hanson also mentions new difficulty with speech, which she describes as feeling tired and struggling to express herself. She denies any right leg weakness, facial droop, slurred speech, or numbness/tingling on the right side during the episode. The patient reports a history of depression, for which she was prescribed sertraline 50 mg in March. However, she admits to not taking this medication as prescribed, stating it "didn't seem to be helping." She mentions that her last appointment with [facility] for [facility] management was canceled in April, and she hasn't had a follow-up since then. When asked about worsening depression, the patient doesn't believe it has worsened but notes significant life changes, including transitioning from RV living to a house two years ago due to her starting dialysis. Ms. Hanson denies smoking, alcohol use, or illicit drug use. She also denies a history of diabetes or hypertension. 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 HEENT: Positive for tooth pain. Neurological: Positive for right arm stiffness, involuntary jerking movements of right arm, and speech difficulties. Psychiatric: Positive for depression. PAST MEDICAL HISTORY: as above PAST SURGICAL HISTORY: as above PAST SOCIAL HISTORY: depression. No rec drug abuse FAMILY HISTORY: daughter with "funtional neurological disorder" Coded Allergies: codeine (Unverified Adverse Reaction, Unknown, 06/30/25) NAUSEA, VOMITING PHYSICAL EXAM EYES: Anicteric. Pupils equal and reactive. HENT: No oral thrush seen, moist Oral mucosa NECK: Supple, no JVD or thyromegaly. LUNGS: Good air entry. No rales, no rhonchi. CARDIOVASCULAR: S1, S2 regular. No murmur heard. ABDOMEN: Soft, non tender, bowel sounds present, no organomegaly CENTRAL NERVOUS SYSTEM: Awake, alert, oriented x 3. No focal deficits. SKIN: No rashes, no swelling. LYMPHATICS: No peripheral lymphadenopathy MUSCULOSKELETAL: No joint swelling, erythema or tenderness. EXTREMITIES: No cyanosis or clubbing BACK: No deformity, no pressure ulcer. GENITOURINARY: No dysuria or hematuria Vital Sign (Last 24 Hours) 07/05/25 07/05/25 10:00 14:22 Temp 98.4 Pulse 83 Resp 16 B/P (MAP) 159/69 Pulse Ox 93 O2 Delivery Room Air O2 Flow Rate 0 FiO2 21 LABS: Laboratory: Test 07/05/25 09:05 07/05/25 08:51 Range/Units Urine Color YELLOW YELLOW Urine Appearance CLEAR CLEAR Urine pH 5.0 5.0-8.0 Urine Specific [place] 1.026 1.001-1.031 Urine Protein NEGATIVE NEGATIVE mg/dL Urine Glucose (UA) NEGATIVE NEGATIVE mg/dL Urine Ketones NEGATIVE NEGATIVE mg/dL Urine Occult Blood NEGATIVE NEGATIVE Urine Nitrate NEGATIVE NEGATIVE Urine Bilirubin NEGATIVE NEGATIVE mg/dL Urine Urobilinogen 0.2 0.2-1.0 mg/dL Urine Leukocyte Esterase NEGATIVE NEGATIVE Elizabteh/uL Urine RBC 2-5 H 0-1 /HPF Urine WBC 0-1 0-1 /HPF Urine Bacteria None None Seen /HPF White Blood Count 9.2 4.8-10.8 K/uL Red Blood Count 4.44 4.00-5.50 MIL/uL Hemoglobin 13.6 12.0-16.0 g/dL Hematocrit 41.5 36-48 % Mean Corpuscular Volume 93.5 79-99 fL Mean Corpuscular Hemoglobin 30.6 27.0-33.0 pg Mean Corpuscular Hemoglobin Concent 32.8 32.0-36.0 g/dL Red Cell Distribution Width 12.7 11.0-15.5 % Platelet Count 299 130-400 K/uL Mean Platelet Volume 10.3 7.5-10.5 fL Immature Granulocyte % (Auto) 0.3 0-1 % Neutrophils (%) (Auto) 57.1 40.0-77.0 % Lymphocytes (%) (Auto) 28.1 21.0-51.0 % Monocytes (%) (Auto) 8.6 3.0-13.0 % Eosinophils (%) (Auto) 5.0 0.0-8.0 % Basophils (%) (Auto) 0.9 0.0-5.0 % Neutrophils # (Auto) 5.3 1.8-7.7 K/uL Lymphocytes # (Auto) 2.6 1.0-4.8 K/uL Monocytes # (Auto) 0.8 0.1-1.0 K/uL Eosinophils # (Auto) 0.46 0.00-0.70 K/uL Basophils # (Auto) 0.08 0.00-0.20 K/uL Absolute Immature Granulocyte (auto 0.03 0-1 K/uL Nucleated Red Blood Cells 0.0 0.0-0.19 % Prothrombin Time 10.2 9.6-11.6 SEC Prothromb Time International Ratio 0.96 0.85-1.15 Activated Partial Thromboplast Time 27.3 26.3-35.5 SEC Sodium Level 136 136-145 mmol/L Potassium Level 4.1 3.5-5.1 mmol/L Chloride Level 101 101-111 mmol/L Carbon Dioxide Level 30 21-32 mmol/L Blood Urea Nitrogen 9 7-18 mg/dL Creatinine 1.1 H 0.5-1.0 mg/dL Glomerular Filtration Rate Calc 51 >90 mL/min Random Glucose 108 H 70-105 mg/dL Lactic Acid Level 1.5 0.8-2.5 mmol/L Total Calcium 8.8 8.5-10.1 mg/dL Total Bilirubin 0.8 0.2-1.0 mg/dL Direct Bilirubin 0.2 0.0-0.3 mg/dL Aspartate Amino Transf (AST/SGOT) 132 H 10-37 U/L Alanine Aminotransferase (ALT/SGPT) 113 H 12-78 U/L Alkaline Phosphatase 144 H 50-136 U/L Ammonia 13 11-32 umol/L Total Creatine Kinase 55 21-232 U/L Troponin I High Sensitivity 10 4-50 ng/L Total Protein 6.8 6.0-8.3 g/dL Albumin 3.3 L 3.5-5.0 g/dL DIAGNOSTICS / RADIOLOGY: MRI brain: I review the images. No strokes ASSESSMENT / PLAN: Ms. Hanson is a 79-year-old female with a history of hypothyroidism, pituitary tumor removal, cholecystectomy, and dyslipidemia presenting with new-onset right arm stiffness and involuntary movements lasting approximately 30 minutes. Right UE dystonia Assessment: Ms. Hanson experienced sudden onset of right arm stiffness and involuntary jerking movements upon waking this morning, lasting approximately 30 minutes. She denies any prior history of similar episodes, seizures, or epilepsy. There was no associated right leg weakness, facial droop, slurred speech, or numbness/tingling. MRI was negative for acute stroke. Given the focal nature of the symptoms, their sudden onset, and the negative MRI findings, the differential diagnosis includes focal dystonia or possibly a focal seizure. Medication side effects are being considered as a potential cause, particularly in light of recent medication changes. Plan: - Admit for 24-hour observation - Order laboratory studies including comprehensive metabolic panel and thyroid stimulating hormone - Review current medications, particularly recent changes or increases - Monitor for recurrence of symptoms during admission Depression Assessment: Patient has a history of depression and was previously prescribed sertraline 50 mg. However, she reports discontinuing the medication due to perceived lack of efficacy. Recent life changes, including transitioning from RV living to a house due to her 's dialysis needs, may be contributing to he r mental health status. Plan: - Reassess current depression symptoms and treatment needs - Consider referral to mental health services for medication management and therapy Hypothyroidism Assessment: Patient has a history of hypothyroidism and is currently taking levothyroxine. Thyroid function should be assessed as thyroid abnormalities can potentially contribute to neurological symptoms. Plan: - Review current levothyroxine dosage - Assess TSH levels as part of laboratory workup Thank you for your consultation. I will sign off. FERNANDO ROSS MD Jul 05, 2025 14:35
--- NOTE | 2025-07-05 14:49 | HMCIMG ---
EXAM: MR Brain with and without Intravenous Contrast. CLINICAL HISTORY: ruled stroke TECHNIQUE: Multisequence, multiplanar magnetic resonance images acquired of the brain with and without intravenous contrast. CONTRAST: COMPARISON: None provided. 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 Mild to moderate age-related neuroparenchymal atrophy. Mild chronic small vessel ischemic changes in bilateral periventricular white matter. No restricted diffusion to indicate acute infarction. No intracranial mass or hemorrhage. No midline shift or extra-axial fluid collection. No cerebellar tonsillar ectopia. No abnormal enhancement. The central arterial and venous flow voids are patent. VENTRICLES: No hydrocephalus. ORBITS: The orbits are normal. SINUSES AND MASTOIDS: The sinuses and mastoid air cells are clear. BONES: No acute fracture or aggressive appearing osseous lesion. IMPRESSION: 1. No acute intracranial findings. 2. 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 /[place]
--- NOTE | 2025-07-05 15:08 | EKG ---
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
[2025-07-06 04:00] VITALS: BP 151/73; PULSE 78; RESP 16; TEMP 98.6
[2025-07-06 04:44] LABS: IMMATURE GRANULOCYTE ABSOLUTE 0.03 K/uL (0-1); NUCLEATED RED BLOOD CELLS 0.0 % (0.0-0.19); PLATELET COUNT (AUTO) 277 K/uL (130-400); RED BLOOD CELL COUNT(AUTO) 4.27 MIL/uL (4.00-5.50); RED CELL DISTRIBUTION WIDTH 12.5 % (11.0-15.5); WHITE BLOOD COUNT (AUTO) 6.6 K/uL (4.8-10.8)
[2025-07-06 05:11] LABS: ASPARTATE AMINOTRANSFERASE 54.0 U/L (10-37); CREATININE 0.9 mg/dL (0.5-1.0); GLOMERULAR FILTR. RATE CALC 65.0 mL/min (>90); GLUCOSE,RANDOM 88.0 mg/dL (70-105); LDL DIRECT 78.0 mg/dL (0-99); SODIUM SERUM 137.0 mmol/L (136-145); TOTAL PROTEIN, SERUM 6.4 g/dL (6.0-8.3); UREA NITROGEN, BLOOD 5.0 mg/dL (7-18)
[2025-07-06] MEDS: PoTASSium chloRIDE 20MEQ ER 20 MEQ ERTAB PO PRN (07:06)
[2025-07-06 07:55] VITALS: BP 118/83; PULSE 76; RESP 20; TEMP 98.6
[2025-07-06 08:00] VITALS: O2SAT 100
--- NOTE | 2025-07-06 08:44 | PN ---
[facility] PROGRESS NOTE Date of Service: Jul 06, 2025 Time of Service: 08:41 SUBJECTIVE: [ ] Admission date 07/05/2025 Chief complaint symptoms of stroke PCP: Alvarez Hernandez MD 79-year-old female presents in ED with chief complaints of symptoms of stroke. Patient was recently hospitalized for syncope in dizziness. workup was done echo LV EF 55%, carotid Dopplers significant stenosis, was negative on that admission patient's blood pressure medication was adjusted increase her losartan to 50 daily she was on 25 mg. The patient blood pressure on arrival was hypotensive. Patient is having difficulty to call what happened earlier this morning. She reports she got up between six or seven and she noted that her right arm we will shift to her left side uncontrollably. Was unable to move her right arm back. She says she felt was not able to speak. she denies blurred vision, double vision, sensory deficits, or slurred speech. 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 Woke up her and was brought to ER for further evaluation and treatment. Imaging: CT head: No acute intracranial findings. If clinical concern persist recommend MRI of the brain for further evaluation. last admission: 07/01/25 carotid : Mild intimal thickening in bilateral carotid arteries and their branches. Small calcified plaques in the bilateral carotid bulb without significant stenosis There is no significant stenosis or flow limiting lesions in the remainder of the arteries.High resistance flow in the right vertebral artery, suggestive of distal stenosis. CTA head and neck: Unremarkable CTA of the neck. 07/06/25 patient's blood pressure has been labile she runs between 118 up to 150 systolic she is currently on Norvasc 10 mg. Was seen by Neurology E signed off. MRI and brain was negative. REVIEW OF SYSTEMS 812 point ROS obtained all relevant positive documented otherwise RS negative PHYSICAL EXAM GENERAL APPEARANCE: The patient is awake, alert, and oriented, in no acute cardiopulmonary distress. NEUROLOGICAL: Cranial nerves II-XII grossly intact. Motor is 5/5 in bilateral upper and lower extremities proximal to distal. No sensory deficits. HEENT: Face is symmetric. Pupils are equal and reactive. Extraocular movements are intact. NECK: Supple. No JVD. No thyromegaly. No submental, submandibular, pre-/postau ricular, occipital or supraclavicular lymphadenopathy. CHEST: Normal chest expansion. No Telemetry. LUNGS: Absence of any rales, rhonchi or any wheezing. CARDIOVASCULAR: Regular. S1 and S2 normal. No appreciable rubs, murmurs or gallops. ABDOMEN: Soft, nontender, and nondistended. There is no rebound, voluntary guarding, or rigidity. : Deferred. No Gama. EXTREMITIES: Non-edematous and not cyanotic. No clubbing. Good capillary refill. SKIN: No skin breakdown. Vital Signs (last 8hr) Date Time Temp Pulse Resp B/P (MAP) Pulse Ox O2 Delivery O2 Flow Rate FiO2 07/06/25 07:55 98.6 76 20 118/83 100 Room Air 07/06/25 04:00 98.6 78 16 151/73 99 Room Air LABS: Laboratory: Test 07/06/25 03:52 07/05/25 09:05 07/05/25 08:51 Range/Units White Blood Count 6.6 # 4.8-10.8 K/uL Red Blood Count 4.27 4.00-5.50 MIL/uL Hemoglobin 13.1 12.0-16.0 g/dL Hematocrit 39.4 36-48 % Mean Corpuscular Volume 92.3 79-99 fL Mean Corpuscular Hemoglobin 30.7 27.0-33.0 pg Mean Corpuscular Hemoglobin Concent 33.2 32.0-36.0 g/dL Red Cell Distribution Width 12.5 11.0-15.5 % Platelet Count 277 130-400 K/uL Mean Platelet Volume 10.4 7.5-10.5 fL Immature Granulocyte % (Auto) 0.5 0-1 % Neutrophils (%) (Auto) 56.9 40.0-77.0 % Lymphocytes (%) (Auto) 27.6 21.0-51.0 % Monocytes (%) (Auto) 9.1 3.0-13.0 % Eosinophils (%) (Auto) 5.0 0.0-8.0 % Basophils (%) (Auto) 0.9 0.0-5.0 % Neutrophils # (Auto) 3.7 1.8-7.7 K/uL Lymphocytes # (Auto) 1.8 1.0-4.8 K/uL Monocytes # (Auto) 0.6 0.1-1.0 K/uL Eosinophils # (Auto) 0.33 0.00-0.70 K/uL Basophils # (Auto) 0.06 0.00-0.20 K/uL Absolute Immature Granulocyte (auto 0.03 0-1 K/uL Nucleated Red Blood Cells 0.0 0.0-0.19 % Sodium Level 137 136-145 mmol/L Potassium Level 3.6 3.5-5.1 mmol/L Chloride Level 101 101-111 mmol/L Carbon Dioxide Level 32 21-32 mmol/L Blood Urea Nitrogen 5 L 7-18 mg/dL Creatinine 0.9 0.5-1.0 mg/dL Glomerular Filtration Rate Calc 65 >90 mL/min Random Glucose 88 70-105 mg/dL Total Calcium 8.7 8.5-10.1 mg/dL Magnesium Level 1.90 1.80-2.40 mg/dL Total Bilirubin 1.2 #H 0.2-1.0 mg/dL Aspartate Amino Transf (AST/SGOT) 54 H 10-37 U/L Alanine Aminotransferase (ALT/SGPT) 72 # 12-78 U/L Alkaline Phosphatase 120 50-136 U/L Total Protein 6.4 6.0-8.3 g/dL Albumin 3.1 L 3.5-5.0 g/dL Triglycerides Level 105 30-200 mg/dL Cholesterol Level 149 <200 mg/dL LDL Cholesterol 78 0-99 mg/dL HDL Cholesterol 48 35-85 mg/dL Urine Color YELLOW YELLOW Urine Appearance CLEAR CLEAR Urine pH 5.0 5.0-8.0 Urine Specific [place] 1.026 1.001-1.031 Urine Protein NEGATIVE NEGATIVE mg/dL Urine Glucose (UA) NEGATIVE NEGATIVE mg/dL Urine Ketones NEGATIVE NEGATIVE mg/dL Urine Occult Blood NEGATIVE NEGATIVE Urine Nitrate NEGATIVE NEGATIVE Urine Bilirubin NEGATIVE NEGATIVE mg/dL Urine Urobilinogen 0.2 0.2-1.0 mg/dL Urine Leukocyte Esterase NEGATIVE NEGATIVE Elizabeth/uL Urine RBC 2-5 H 0-1 /HPF Urine WBC 0-1 0-1 /HPF Urine Bacteria None None Seen /HPF Prothrombin Time 10.2 9.6-11.6 SEC Prothromb Time International Ratio 0.96 0.85-1.15 Activated Partial Thromboplast Time 27.3 26.3-35.5 SEC Lactic Acid Level 1.5 0.8-2.5 mmol/L Direct Bilirubin 0.2 0.0-0.3 mg/dL Ammonia 13 11-32 umol/L Total Creatine Kinase 55 21-232 U/L Troponin I High Sensitivity 10 4-50 ng/L Current Medications Medications (Trade) Dose Ordered Sig/Gisella Route PRN Reason Start Time Stop Time Status Last Admin Dose Admin Acetaminophen (TYLenol 325MG TAB) 650 mg Q4H PRN PO TEMPERATURE GREATER THAN 101.5 07/05/25 11:30 08/04/25 11:29 07/06/25 04:42 650 MG Amlodipine Besylate (NorvASC 5MG TAB) 10 mg DAILY PO 07/06/25 09:00 08/05/25 08:59 Atorvastatin Calcium (LIPItor 40MG) 40 mg HS PO 07/05/25 21:00 08/04/25 20:59 07/05/25 19:39 40 MG Famotidine (Pepcid 20mg Tab) 20 mg DAILY PO 07/06/25 09:00 08/05/25 08:59 Hydralazine HCl (APRESOLine 20MG INJ) 5 mg Q4H PRN IV ADMINISTER FOR SBP > 160 07/05/25 18:00 08/04/25 17:59 Lactulose (Constulose 20gm/ 30ml Udcup) 20 gm BID PRN PO CONSTIPATION 07/05/25 11:30 08/04/25 11:29 Levothyroxine Sodium (SYNTHroid 112MCG TAB) 112 mcg SYN PO 07/06/25 06:30 08/05/25 06:29 07/06/25 07:06 112 MCG Magnesium Sulfate 50 ml @ 0 mls/hr PROTOCOL PRN IV low mag level 07/05/25 11:30 08/04/25 11:29 Montelukast Sodium (SinguLAIR) 10 mg HS PO 07/05/25 21:00 08/04/25 20:59 07/05/25 19:39 10 MG Ondansetron HCl (zoFRAN 4MG INJ) 4 mg Q6H PRN IVP NAUSEA/VOMITING 07/05/25 11:30 08/04/25 11:29 Potassium Chloride 100 ml @ 100 mls/hr AD PRN IV POTASSIUM PROTOCOL 07/05/25 11:30 08/04/25 11:29 Potassium Chloride (K-Dur/Klor-Con 20meq) 20 meq AD PRN PO POTASSIUM PROTOCOL 07/05/25 11:30 08/04/25 11:29 07/06/25 07:06 20 MEQ Potassium Chloride (KCl 10% Elixir 20meq/15ml) 20 meq AD PRN PO POTASSIUM PROTOCOL 07/05/25 11:30 08/04/25 11:29 DIAGNOSTICS / RADIOLOGY: [ ] ASSESSMENT: Rule out stroke versus TIA POA hypotensive on arrival POA Hypertensive just recent change her medication POA Hypothyroidism Elevated LFTs PLAN: Admit: Surgical with tele condition: Guarded Status: Full code activity: bedrest IVF: heplock Consultants nephrologists Imaging MRI without contrast speech eval, PT eval Aspiration precaution: HOB elevated at 45 degree at all time Labs cbc, cmp, mag+ Replace electrolytes as needed as per protocol to keep potassium above 4.0 magnesium 2.0. Home medications pending to be reviewed by RN nurse. will hold blood pressure medication keep systolic 160's the next 48 hours PRN: MEDICATIONS Tylenol 650 mg po every 4 hrs for fever zofran 4 mg IV every 6 hrs for n/v bowel regiment: lactulose 20 gm PO BID PRN constipation Pain management: Tylenol as needed fall precaution Supportive measures: DVT ppx, GI ppx all questions answered Supervising MD: Dr. Reyes C c/d This document was generated in part using voice recognition software, occasional wrong word or sound alike substitutions may have occurred due to the inherent limitations of voice recognition software. Read the chart carefully and recognize using context, where the substitutions have occurred. Although every effort was made to edit the content, managing cognitive engineer and typing errors may occur ATTESTATION BY PHYSICIAN I have seen and examined the patient. I reviewed the documentation, medical decision making, and treatment plan as noted by the mid-level provider above. I agree with the findings and plan of care. GURU REYES MD, ELIZABETH NP Jul 06, 2025 08:44
[2025-07-06] MEDS: amLODIPine 5 MG TAB PO SCH (08:48)
[2025-07-06] MEDS: FAMOTIDINE 20MG TAB PO SCH (08:48)
[2025-07-06 11:19] VITALS: BP 142/83; PULSE 73; RESP 16; TEMP 96.9
[2025-07-06] MEDS ORDERED: LOSA25TA41 PO (12:01)
--- NOTE | 2025-07-06 12:04 | DS ---
Discharge Summary Hospital Course Summary: Admission date 07/05/2025 Chief complaint symptoms of stroke PCP: Alvarez Hernandez MD 79-year-old female presents in ED with chief complaints of symptoms of stroke. Patient was recently hospitalized for syncope in dizziness. workup was done echo LV EF 55%, carotid Dopplers significant stenosis, was negative on that admission patient's blood pressure medication was adjusted increase her losartan to 50 daily she was on 25 mg. The patient blood pressure on arrival was hypotensive. Patient is having difficulty to call what happened earlier this morning. She reports she got up between six or seven and she noted that her right arm we will shift to her left side uncontrollably. Was unable to move her right arm back. She says she felt was not able to speak. she denies blurred vision, double vision, sensory deficits, or slurred speech. 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 Woke up her and was brought to ER for further evaluation and treatment. Imaging: CT head: No acute intracranial findings. If clinical concern persist recommend MRI of the brain for further evaluation. last admission: 07/01/25 carotid : Mild intimal thickening in bilateral carotid arteries and their branches. Small calcified plaques in the bilateral carotid bulb without significant stenosis There is no significant stenosis or flow limiting lesions in the remainder of the arteries.High resistance flow in the right vertebral artery, suggestive of distal stenosis. CTA head and neck: Unremarkable CTA of the neck. 07/06/25 patient's blood pressure has been labile she runs between 118 up to 150 systolic she is currently on Norvasc 10 mg. Was seen by Neurology E signed off. MRI and brain was negative. Patient was currently on losartan 25 then was discharged with 50 mg daily. Patient was made aware that changes were made to her losartan medication she will be on 25 mg p.o. daily I advised her we will need to be monitoring her blood pressure and keeping a log book to presents to her PCP for has been of blood pressure medication as needed. 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 Hanson is a 79-year-old right-handed female with a history of hypothyroidism, pituitary tumor removal, cholecystectomy, and dyslipidemia presenting to the hospital with new-onset right arm stiffness and involuntary movements. The patient reports that she was discharged from the hospital on Sunday and went to [place] on Sunday due to a tooth-related issue. Upon returning home Sunday, she went to sleep as she hadn't slept since Sunday. This morning, while debating whether to go back to sleep or wake up, she experienced sudden s tiffness and involuntary jerking movements in her right arm. The patient states she was unable to control or move her arm during this episode, which lasted approximately 30 minutes. Her witnessed the event and immediately brought her to the hospital. The patient denies any prior history of similar episodes, seizures, or epilepsy. Ms. Hanson also mentions new difficulty with speech, which she describes as feeling tired and struggling to express herself. She denies any right leg weakness, facial droop, slurred speech, or numbness/tingling on the right side during the episode. The patient reports a history of depression, for which she was prescribed sertraline 50 mg in March. However, she admits to not taking this medication as prescribed, stating it "didn't seem to be helping." She mentions that her last appointment with [facility] for [facility] management was canceled in April, and she hasn't had a follow-up since then. When asked about worsening depression, the patient doesn't believe it has worsened but notes significant life changes, including transitioning from RV living to a house two years ago due to her starting dialysis. Ms. Hanson denies smoking, alcohol use, or illicit drug use. She also denies a history of diabetes or hypertension. 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 HEENT: Positive for tooth pain. Neurological: Positive for right arm stiffness, involuntary jerking movements of right arm, and speech difficulties. Psychiatric: Positive for depression. PAST MEDICAL HISTORY: as above PAST SURGICAL HISTORY: as above PAST SOCIAL HISTORY: depression. No rec drug abuse FAMILY HISTORY: daughter with "funtional neurological disorder" Coded Allergies: codeine (Unverified Adverse Reaction, Unknown, 06/30/25) NAUSEA, VOMITING PHYSICAL EXAM EYES: Anicteric. Pupils equal and reactive. HENT: No oral thrush seen, moist Oral mucosa NECK: Supple, no JVD or thyromegaly. LUNGS: Good air entry. No rales, no rhonchi. CARDIOVASCULAR: S1, S2 regular. No murmur heard. ABDOMEN: Soft, non tender, bowel sounds present, no organomegaly CENTRAL NERVOUS SYSTEM: Awake, alert, oriented x 3. No focal deficits. SKIN: No rashes, no swelling. LYMPHATICS: No peripheral lymphadenopathy MUSCULOSKELETAL: No joint swelling, erythema or tenderness. EXTREMITIES: No cyanosis or clubbing BACK: No deformity, no pressure ulcer. GENITOURINARY: No dysuria or hematuria Vital Sign (Last 24 Hours) 07/05/25 07/05/25 10:00 14:22 Temp 98.4 Pulse 83 Resp 16 B/P (MAP) 159/69 Pulse Ox 93 O2 Delivery Room Air O2 Flow Rate 0 FiO2 21 LABS: Laboratory: Test 07/05/25 09:05 07/05/25 08:51 Range/Units Urine Color YELLOW YELLOW Urine Appearance CLEAR CLEAR Urine pH 5.0 5.0-8.0 Urine Specific [place] 1.026 1.001-1.031 Urine Protein NEGATIVE NEGATIVE mg/dL Urine Glucose (UA) NEGATIVE NEGATIVE mg/dL Urine Ketones NEGATIVE NEGATIVE mg/dL Urine Occult Blood NEGATIVE NEGATIVE Urine Nitrate NEGATIVE NEGATIVE Urine Bilirubin NEGATIVE NEGATIVE mg/dL Urine Urobilinogen 0.2 0.2-1.0 mg/dL Urine Leukocyte Esterase NEGATIVE NEGATIVE Elizabeth/uL Urine RBC 2-5 H 0-1 /HPF Urine WBC 0-1 0-1 /HPF Urine Bacteria None None Seen /HPF White Blood Count 9.2 4.8-10.8 K/uL Red Blood Count 4.44 4.00-5.50 MIL/uL Hemoglobin 13.6 12.0-16.0 g/dL Hematocrit 41.5 36-48 % Mean Corpuscular Volume 93.5 79-99 fL Mean Corpuscular Hemoglobin 30.6 27.0-33.0 pg Mean Corpuscular Hemoglobin Concent 32.8 32.0-36.0 g/dL Red Cell Distribution Width 12.7 11.0-15.5 % Platelet Count 299 130-400 K/uL Mean Platelet Volume 10.3 7.5-10.5 fL Immature Granulocyte % (Auto) 0.3 0-1 % Neutrophils (%) (Auto) 57.1 40.0-77.0 % Lymphocytes (%) (Auto) 28.1 21.0-51.0 % Monocytes (%) (Auto) 8.6 3.0-13.0 % Eosinophils (%) (Auto) 5.0 0.0-8.0 % Basophils (%) (Auto) 0.9 0.0-5.0 % Neutrophils # (Auto) 5.3 1.8-7.7 K/uL Lymphocytes # (Auto) 2.6 1.0-4.8 K/uL Monocytes # (Auto) 0.8 0.1-1.0 K/uL Eosinophils # (Auto) 0.46 0.00-0.70 K/uL Basophils # (Auto) 0.08 0.00-0.20 K/uL Absolute Immature Granulocyte (auto 0.03 0-1 K/uL Nucleated Red Blood Cells 0.0 0.0-0.19 % Prothrombin Time 10.2 9.6-11.6 SEC Prothromb Time International Ratio 0.96 0.85-1.15 Activated Partial Thromboplast Time 27.3 26.3-35.5 SEC Sodium Level 136 136-145 mmol/L Potassium Level 4.1 3.5-5.1 mmol/L Chloride Level 101 101-111 mmol/L Carbon Dioxide Level 30 21-32 mmol/L Blood Urea Nitrogen 9 7-18 mg/dL Creatinine 1.1 H 0.5-1.0 mg/dL Glomerular Filtration Rate Calc 51 >90 mL/min Random Glucose 108 H 70-105 mg/dL Lactic Acid Level 1.5 0.8-2.5 mmol/L Total Calcium 8.8 8.5-10.1 mg/dL Total Bilirubin 0.8 0.2-1.0 mg/dL Direct Bilirubin 0.2 0.0-0.3 mg/dL Aspartate Amino Transf (AST/SGOT) 132 H 10-37 U/L Alanine Aminotransferase (ALT/SGPT) 113 H 12-78 U/L Alkaline Phosphatase 144 H 50-136 U/L Ammonia 13 11-32 umol/L Total Creatine Kinase 55 21-232 U/L Troponin I High Sensitivity 10 4-50 ng/L Total Protein 6.8 6.0-8.3 g/dL Albumin 3.3 L 3.5-5.0 g/dL DIAGNOSTICS / RADIOLOGY: MRI brain: I review the images. No strokes ASSESSMENT / PLAN: Ms. Hanson is a 79-year-old female with a history of hypothyroidism, pituitary tumor removal, cholecystectomy, and dyslipidemia presenting with new-onset right arm stiffness and involuntary movements lasting approximately 30 minutes. Right UE dystonia Assessment: Ms. Hanson experienced sudden onset of right arm stiffness and involuntary jerking movements upon waking this morning, lasting approximately 30 minutes. She denies any prior history of similar episodes, seizures, or epilepsy. There was no associated right leg weakness, facial droop, slurred speech, or numbness/tingling. MRI was negative for acute stroke. Given the focal nature of the symptoms, their sudden onset, and the negative MRI findings, the differential diagnosis includes focal dystonia or possibly a focal seizure. Med ication side effects are being considered as a potential cause, particularly in light of recent medication changes. Plan: - Admit for 24-hour observation - Order laboratory studies including comprehensive metabolic panel and thyroid stimulating hormone - Review current medications, particularly recent changes or increases - Monitor for recurrence of symptoms during admission Depression Assessment: Patient has a history of depression and was previously prescribed sertraline 50 mg. However, she reports discontinuing the medication due to perceived lack of efficacy. Recent life changes, including transitioning from RV living to a house due to her 's dialysis needs, may be contributing to her mental health status. Plan: - Reassess current depression symptoms and treatment needs - Consider referral to mental health services for medication management and therapy Hypothyroidism Assessment: Patient has a history of hypothyroidism and is currently taking levothyroxine. Thyroid function should be assessed as thyroid abnormalities can potentially contribute to neurological symptoms. Plan: - Review current levothyroxine dosage - Assess TSH levels as part of laboratory workup Thank you for your consultation. I will sign off. Procedure(s): REASON: ruled stroke ORDERING PHYSICIAN: SELINA JACOBS NP PROCEDURE: BRAIN WO - MR BRAIN WO CON EXAM: MR Brain with and without Intravenous Contrast. CLINICAL HISTORY: ruled stroke TECHNIQUE: Multisequence, multiplanar magnetic resonance images acquired of the brain with and without intravenous contrast. CONTRAST: COMPARISON: None provided. 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 Mild to moderate age-related neuroparenchymal atrophy. Mild chronic small vessel ischemic changes in bilateral periventricular white matter. No restricted diffusion to indicate acute infarction. No intracranial mass or hemorrhage. No midline shift or extra-axial fluid collection. No cerebellar tonsillar ectopia. No abnormal enhancement. The central arterial and venous flow voids are patent. VENTRICLES: No hydrocephalus. ORBITS: The orbits are normal. SINUSES AND MASTOIDS: The sinuses and mastoid air cells are clear. BONES: No acute fracture or aggressive appearing osseous lesion. IMPRESSION: 1. No acute intracranial findings. 2. 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 REASON: confusion ORDERING PHYSICIAN: GRIFFIN HOWARD MD PROCEDURE: HEAD WO - CT HEAD/BRAIN W/O CONTRAST ADDENDUM REPORT ADDENDUM: Results were shared by telephone at 10:41 am on 07-05-25 and acknowledged by Juan Lawson /[facility] EXAM: CT Head Without IV contrast. CLINICAL HISTORY: CODE STROKE TECHNIQUE: Axial computed tomography images of the head/brain without intravenous contrast. COMPARISON: Compared with the previous CT dated 07/02. FINDINGS: BRAIN: Mild to moderate age-related neuroparenchymal atrophy. Mild chronic small vessel ischemic changes in bilateral periventricular white matter. No evidence of acute hemorrhage. No mass lesion. No CT evidence for acute territorial infarct. No midline shift or extra-axial collections. VENTRICLES: No hydrocephalus. ORBITS: The orbits are unremarkable. SINUSES AND MASTOIDS: The paranasal sinuses and mastoid air cells are clear. BONES: No fracture. Hyperostosis frontalis interna. SOFT TISSUES: Unremarkable. IMPRESSION: 1. No acute intracranial findings. If clinical concern persist recommend MRI of the brain for further evaluation. /[facility] DICTATED BY: SHAYY PRABHAKAR Jr., MD DATE: 07/05/25 1044 ELECTRONICALLY SIGNED BY: DATE: EXAM: CT Head Without IV contrast. CLINICAL HISTORY: CODE STROKE TECHNIQUE: Axial computed tomography images of the head/brain without intravenous contrast. COMPARISON: Compared with the previous CT dated 07/02. FINDINGS: BRAIN: Mild to moderate age-related neuroparenchymal atrophy. Mild chronic small vessel ischemic changes in bilateral periventricular white matter. No evidence of acute hemorrhage. No mass lesion. No CT evidence for acute territorial infarct. No midline shift or extra-axial collections. VENTRICLES: No hydrocephalus. ORBITS: The orbits are unremarkable. SINUSES AND MASTOIDS: The paranasal sinuses and mastoid air cells are clear. BONES: No fracture. Hyperostosis frontalis interna. SOFT TISSUES: Unremarkable. IMPRESSION: 1. No acute intracranial findings. If clinical concern persist recommend MRI of the brain for further evaluation. 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 daily NEW MEDICATIONS TEACHING: patient was advised to monitor blood pressure at home and presents blood pressure log book to PCP to adjust blood pressure medication. Emergency instructions: The patient was instructed to present to the nearest Emergency Department or call 911 should their symptoms return or worsen. Home Medications: Active Scripts Losartan Potassium (Cozaar) 50 Mg Tablet, 50 MG PO DAILY for 30 Days, #30 TAB Prov:SELINA JACOBS NP 07/03/25 Reported Medications Montelukast Sodium (Montelukast Sodium) 10 Mg Tablet, 1 TAB PO HS for 30 Days, #30 TAB 0 Refills 07/05/25 Simvastatin (Simvastatin) 20 Mg Tablet, 1 TAB PO HS for 30 Days, #30 TAB 0 Refills 06/30/25 Amlodipine Besylate (Amlodipine Besylate) 10 Mg Tablet, 1 TAB PO DAILY for 30 Days, #30 TAB 0 Refills 06/30/25 Levothyroxine Sodium (Levothyroxine) 112 Mcg Capsule, 1 CAP PO DAILY for 30 Days, #30 CAP 0 Refills 06/30/25 Discontinued Reported Medications Sertraline HCl (Sertraline HCl) 50 Mg Tablet, 50 MG PO DAILY, TAB 06/30/25 Losartan Potassium (Losartan Potassium) 25 Mg Tablet, 1 TAB PO DAILY for 30 Days, #30 TAB 0 Refills 06/30/25 New Medications: Losartan Potassium (Losartan Potassium) 25 Mg Tablet 1 TAB PO DAILY for 30 Days, #30 TAB 0 Refills Continued Medications: Amlodipine Besylate (Amlodipine Besylate) 10 Mg Tablet 1 TAB PO DAILY for 30 Days, #30 TAB 0 Refills Levothyroxine Sodium (Levothyroxine) 112 Mcg Capsule 1 CAP PO DAILY for 30 Days, #30 CAP 0 Refills Montelukast Sodium (Montelukast Sodium) 10 Mg Tablet 1 TAB PO HS for 30 Days, #30 TAB 0 Refills Simvastatin (Simvastatin) 20 Mg Tablet 1 TAB PO HS for 30 Days, #30 TAB 0 Refills Discontinued Medications: Losartan Potassium (Cozaar) 50 Mg Tablet 50 MG PO DAILY for 30 Days, #30 TAB Time spent arranging discharge: 31-60 minutes ATTESTATION BY PHYSICIAN I have seen and examined the patient. I reviewed the documentation, medical decision making, and treatment plan as noted by the mid-level provider above. I agree with the findings and plan of care. GURU REYES MD, ELIZABETH NP Jul 06, 2025 12:04
--- NOTE | 2025-07-06 12:40 | NUR ---
Patient alert and orientedx4 being discharged home. Patient educated by EDUIN Ivy to resume home meds as per order except Losartan to decrease back to 25mg daily and maintain a BP log and take to PCP on next follow up dorie. Stroke symptoms education provided. IV removed without complications. All questions answered, patient verbalized complete understanding. Patient gathered all belongings and took with her at [place].
== END 2025-07-06 13:54 | disposition home or self-care (01) ==
LOC: EDH 08:39 → INTOOBSV 11:14 → EDHIP 11:14 → 4AH 13:57
PROVIDERS: ADMIT Internal Medicine; ATTEND Internal Medicine
DX: I63.9 Cerebral infarction, unspecified (principal); I10 Essential (primary) hypertension; F32.A Depression, unspecified; E78.00 Pure hypercholesterolemia, unspecified; E03.9 Hypothyroidism, unspecified; D49.7 Neoplasm of unspecified behavior of endocrine glands and other parts of nervous system; K08.89 Other specified disorders of teeth and supporting structures; R79.89 Other specified abnormal findings of blood chemistry; I95.9 Hypotension, unspecified; Z90.49 Acquired absence of other specified parts of digestive tract; Z79.899 Other long term (current) drug therapy; Z98.890 Other specified postprocedural states
CPT/HCPCS: 99285; 70551; 70450; 71045; 82550; 80076; 84484; 80048; 82140; 85025 ×2; 85610; 85730; 87040 ×2; 83605; 81001; 36415 ×2; 93005; 97161; 97116; 80061; 83735; 80053; G0378